=== PATIENT | male | born 1955 | race Caucasian/White ===

== ENCOUNTER 2016-11-23 21:45 | Inpatient (IN) | payer MEDICARE, OTHER ==
[~2016-11-23] VITALS: Ht 182.9 cm; Wt 174.5 kg
[2016-11-23] MEDS ORDERED: ACETAMINOPHEN 500 MG TABLET ONE (21:52)
[2016-11-23] MEDS ORDERED: ACETAMINOPHEN 500 MG TABLET PO ONE (22:00)
[2016-11-23] MEDS ORDERED: ALPR0.255 PO (22:08)
[2016-11-23] MEDS ORDERED: ARIP2 PO (22:08)
[2016-11-23] MEDS ORDERED: SITA25 PO (22:08)
[2016-11-23] MEDS ORDERED: HTN MED PO (22:08)
[2016-11-23] MEDS ORDERED: INSLAN SQ (22:08)
[2016-11-23] MEDS ORDERED: METF500T4 PO (22:08)
[2016-11-23 22:36] LABS: GLUCOSE,POINT OF CARE 369 MG/DL (70-110)
[2016-11-23 23:13] LABS: EOSINOPHILS % (AUTO) 0 % (1.0-6.0); HEMATOCRIT 37.1 % (41-53); HEMOGLOBIN 12.4 g/dL (13.5-17.5); LYMPHOCYTES # (AUTO) 0.3 K/uL (1.0-4.8); LYMPHOCYTES % (AUTO) 1.3 % (22.0-44.0); MEAN CORPUSCULAR HEMOGLOBIN 28.4 pg (26.0-34.0); MEAN CORPUSCULAR HGB CONC 33.3 G/dL (31.0-37.0); MEAN CORPUSCULAR VOLUME 85 fL (80-100); MONOCYTES # (AUTO) 0.2 K/uL (0.1-1.0); MONOCYTES % (AUTO) 1.2 % (2.0-9.0); NEUTROPHILS # (AUTO) 18.5 K/uL (1.8-7.7); PLATELET COUNT (AUTO) 170 K/uL (150-450); RED BLOOD CELL COUNT(AUTO) 4.35 MIL/uL (4.50-5.90); RED CELL DISTRIBUTION WIDTH 14.6 % (11.5-14.5)
[2016-11-23 23:23] LABS: NEUTROPHILS % (AUTO) 97.5 % (40.0-70.0)
[2016-11-23 23:25] LABS: CALCIUM, TOTAL 8.3 mg/dL (8.8-10.5); CREATININE 1.56 mg/dL (0.60-1.30); POTASSIUM 3.4 mmol/L (3.5-5.1)
[2016-11-23 23:31] LABS: ALBUMIN 3.4 g/dL (3.4-5.0); BILIRUBIN,TOTAL 0.6 mg/dL (0.1-1.0); TOTAL PROTEIN, SERUM 6.6 g/dL (6.4-8.2)
[2016-11-23] MEDS ORDERED: BISACODYL 10 MG RECTAL RECTAL SUPPOSITORY PR PRN (23:45)
[2016-11-23] MEDS ORDERED: ONDANSETRON HCL 4 MG/2 ML VIAL IVP PRN (23:45)
[2016-11-23] MEDS ORDERED: ZOLPIDEM TARTRATE 5 MG TABLET PO PRN (23:45)
[2016-11-23] MEDS ORDERED: DEXTROSE 50%-WATER 25 GM/50 ML SYRINGE IVP PRN (23:45)
[2016-11-24] MEDS: POTASSIUM CHL 20 MEQ/0.45% NS 1,000 ML IV SCH ×2 (00:12→16:32)
[2016-11-24] MEDS: HEPARIN SODIUM,PORCINE 5,000 UNITS/ML VIAL SQ SCH ×4 (00:12→23:23)
[2016-11-24] MEDS ORDERED: VANCOMYCIN HCL 1 GM/D5% WATER 200 ML IV ONE ×3 (00:30→18:00)
[2016-11-24] MEDS: PIPERACILLIN/TAZO 3.375 GM/D5W 50 ML IV SCH ×4 (00:46→21:27)
[2016-11-24 00:52] LABS: INFLUENZA TYPE B NEGATIVE FOR TYPE B (NEGATIVE)
[2016-11-24] MEDS ORDERED: ACETAMINOPHEN 650 MG/ISO-OSM 65 ML IV ONE (01:00)
[2016-11-24 02:11] LABS: GLUCOSE,POINT OF CARE 385 MG/DL (70-110)
[2016-11-24] MEDS ORDERED: INSULIN REGULAR, HUMAN 100 UNITS/ML IVP ONE (02:15)
[2016-11-24 02:44] LABS: LACTIC ACID 4.2 mmol/L (0.4-2.0)
[2016-11-24] MEDS ORDERED: IBUPROFEN 600 MG TABLET PO ONE (03:00)
[2016-11-24 03:45] LABS: GLUCOSE, URINE (UA) >=1000 mg/dL (NEGATIVE); KETONES,URINE TRACE mg/dL (NEGATIVE); LEUKOCYTE ESTERASE ,URINE SMALL (NEGATIVE); OCCULT BLOOD,URINE TRACE (NEGATIVE); PH,URINE 5.5 (5.0-8.0); PROTEIN,URINE TRACE (NEGATIVE)
[2016-11-24 04:07] LABS: ADD UA MICROSCOPIC YES; APPEARANCE,URINE SLIGHTLY CLOUDY (CLEAR)
[2016-11-24 04:08] LABS: SQUAMOUS EPITHELIAL CELL,UR Moderate /LPF (None Seen)
[2016-11-24 04:12] LABS: REFLEX LACTIC ACID? YES YES
[2016-11-24 05:25] LABS: HEMATOCRIT 34.3 % (41-53); HEMOGLOBIN 11.4 g/dL (13.5-17.5); MEAN CORPUSCULAR HEMOGLOBIN 28.2 pg (26.0-34.0); MEAN CORPUSCULAR HGB CONC 33.3 G/dL (31.0-37.0); MEAN CORPUSCULAR VOLUME 85 fL (80-100); PLATELET COUNT (AUTO) 158 K/uL (150-450); RED BLOOD CELL COUNT(AUTO) 4.06 MIL/uL (4.50-5.90); RED CELL DISTRIBUTION WIDTH 14.7 % (11.5-14.5); WHITE BLOOD COUNT (AUTO) 23.2 K/uL (4.5-11.0)
[2016-11-24 05:53] LABS: BILIRUBIN,TOTAL 0.8 mg/dL (0.1-1.0); CALCIUM, TOTAL 7.8 mg/dL (8.8-10.5); CREATININE 1.72 mg/dL (0.60-1.30); POTASSIUM 3.5 mmol/L (3.5-5.1); THYROID STIMULATING HORMONE 2.85 uIU/mL (0.36-3.74)
[2016-11-24 06:59] LABS: HEMOGLOBIN A1C 10.4 % (4.5-6.2)
[2016-11-24] MEDS ORDERED: SODIUM CHLORIDE 0.9% 1,000 ML IV ONE (07:00)
[2016-11-24 08:58] LABS: BAND NEUTROPHILS % (MANUAL) 27 % (1-5); LYMPHOCYTES % (MANUAL) 9 % (22-44); RBC MORPHOLOGY COMMENT ABNORMAL RBC MORPH; TOTAL CELLS COUNTED 100
[2016-11-24] MEDS ORDERED: ARIPiprazole 2 MG TABLET PO SCH (09:00)
[2016-11-24] MEDS: ALPRAZolam 0.25 MG TABLET PO SCH ×2 (09:47→20:26)
[2016-11-24] MEDS: PANTOPRAZOLE SODIUM 40 MG DR TABLET PO SCH (09:47)
[2016-11-24 11:36] LABS: GLUCOSE,POINT OF CARE 352 MG/DL (70-110)
[2016-11-24] MEDS: INSULIN DETEMIR 100 UNITS/ML SQ SCH (12:02)
[2016-11-24] MEDS: ACETAMINOPHEN 325 MG TABLET PO PRN ×2 (16:33→23:23)
[2016-11-24 18:41] VITALS: BP 144/88
[2016-11-24 19:16] VITALS: BP 129/60
[2016-11-24] MEDS: INSULIN ASPART 100 UNITS/ML SQ PRN (20:32)
[2016-11-24] MEDS ORDERED: INFLUENZA VIRUS VACCINE QVS 2016-17 (3YR+)/PF 60 MCG/0.5 ML SYRINGE IM ONE (22:00)
[2016-11-24] MEDS ORDERED: PNEUMOCOCCAL VACCINE POLYVALENT 0.5 ML VIAL [PPSV23] IM ONE (22:00)
[2016-11-24] MEDS: OxyCODONE HCL/ACETAMINOPHEN 5-325 MG TABLET PO PRN (22:01)
[2016-11-24 23:20] VITALS: BP 122/70
[2016-11-24 23:28] VITALS: BP 122/70
[2016-11-24] MEDS ORDERED: DILTIAZEM HCL 5 MG/ML 5 ML VIAL IVP ONE (23:45)
[2016-11-25] VITALS (8 sets, daily range): BP systolic 109–133; BP diastolic 56–83
[2016-11-25] MEDS ORDERED: DILTIAZEM HCL 5 MG/ML 5 ML VIAL IVP ONE (00:30)
[2016-11-25] MEDS: PIPERACILLIN/TAZO 3.375 GM/D5W 50 ML IV SCH ×4 (01:06→18:03)
[2016-11-25] MEDS: DILTIAZEM HCL 125 MG in DEXTROSE 5%-WATER 100 ML IV SCH ×2 (01:30→09:50)
[2016-11-25] MEDS: INSULIN ASPART 100 UNITS/ML SQ PRN ×4 (05:58→21:32)
[2016-11-25 07:03] LABS: EOSINOPHILS # (AUTO) 0.01 K/uL (0.00-0.70); EOSINOPHILS % (AUTO) 0.06 % (1.0-6.0); HEMATOCRIT 35.2 % (41-53); HEMOGLOBIN 11.7 g/dL (13.5-17.5); LYMPHOCYTES # (AUTO) 0.6 K/uL (1.0-4.8); LYMPHOCYTES % (AUTO) 4.9 % (22.0-44.0); MEAN CORPUSCULAR HEMOGLOBIN 28.2 pg (26.0-34.0); MEAN CORPUSCULAR HGB CONC 33.3 G/dL (31.0-37.0); MEAN CORPUSCULAR VOLUME 85 fL (80-100); MONOCYTES # (AUTO) 0.5 K/uL (0.1-1.0); MONOCYTES % (AUTO) 4.2 % (2.0-9.0); NEUTROPHILS # (AUTO) 11.7 K/uL (1.8-7.7); PLATELET COUNT (AUTO) 152 K/uL (150-450); RED BLOOD CELL COUNT(AUTO) 4.15 MIL/uL (4.50-5.90); RED CELL DISTRIBUTION WIDTH 15.1 % (11.5-14.5); WHITE BLOOD COUNT (AUTO) 12.9 K/uL (4.5-11.0)
[2016-11-25 07:16] LABS: NEUTROPHILS % (AUTO) 90.9 % (40.0-70.0)
[2016-11-25 07:49] LABS: ALBUMIN 2.9 g/dL (3.4-5.0); BILIRUBIN,TOTAL 0.8 mg/dL (0.1-1.0); CREATININE 1.55 mg/dL (0.60-1.30); POTASSIUM 4.1 mmol/L (3.5-5.1); TOTAL PROTEIN, SERUM 6.4 g/dL (6.4-8.2)
[2016-11-25 08:05] LABS: CALCIUM, TOTAL 8.1 mg/dL (8.8-10.5)
[2016-11-25 08:31] LABS: GLUCOSE COMMENT 1 Received Meds; GLUCOSE,POINT OF CARE 344 MG/DL (70-110)
[2016-11-25 08:36] LABS: GLUCOSE COMMENT 1 Received Meds; GLUCOSE,POINT OF CARE 324 MG/DL (70-110)
[2016-11-25] MEDS: VANCOMYCIN HCL 1 GM/D5% WATER 200 ML IV SCH ×2 (08:43→23:26)
[2016-11-25] MEDS: ALPRAZolam 0.25 MG TABLET PO SCH ×2 (08:43→19:58)
[2016-11-25] MEDS: HEPARIN SODIUM,PORCINE 5,000 UNITS/ML VIAL SQ SCH ×3 (08:43→23:26)
[2016-11-25] MEDS: PANTOPRAZOLE SODIUM 40 MG DR TABLET PO SCH (08:43)
[2016-11-25] MEDS: ACETAMINOPHEN 325 MG TABLET PO PRN (08:44)
[2016-11-25] MEDS: INSULIN DETEMIR 100 UNITS/ML SQ SCH ×2 (09:46→23:27)
[2016-11-25 10:54] LABS: BAND NEUTROPHILS % (MANUAL) 17 % (1-5); LYMPHOCYTES % (MANUAL) 8 % (22-44); RBC MORPHOLOGY COMMENT NORMAL RBC MORPH; TOTAL CELLS COUNTED 100
[2016-11-25] MEDS: CHOLECALCIFEROL (VIT D3) 1,000 UNITS TABLET PO SCH (15:12)
[2016-11-25] MEDS: POTASSIUM CHL 20 MEQ/0.45% NS 1,000 ML IV SCH ×2 (15:37→18:54)
[2016-11-25] MEDS: DILTIAZEM HCL 30 MG TABLET PO SCH ×2 (15:37→23:26)
[2016-11-25] MEDS: OxyCODONE HCL/ACETAMINOPHEN 5-325 MG TABLET PO PRN (19:58)
[2016-11-26 00:54] VITALS: BP 119/77
[2016-11-26] MEDS: PIPERACILLIN/TAZO 3.375 GM/D5W 50 ML IV SCH ×4 (03:14→19:53)
[2016-11-26] MEDS ORDERED: 0.9% SODIUM CHLORIDE 10 ML SYRINGE IVP PRN (04:15)
[2016-11-26 04:17] VITALS: BP 123/72
[2016-11-26] MEDS: INSULIN ASPART 100 UNITS/ML SQ PRN ×4 (05:48→21:01)
[2016-11-26 07:07] LABS: BASOPHILS % (AUTO) 0.3 % (0.0-2.0); EOSINOPHILS % (AUTO) 0.5 % (1.0-6.0); HEMATOCRIT 33.3 % (41-53); LYMPHOCYTES # (AUTO) 0.7 K/uL (1.0-4.8); LYMPHOCYTES % (AUTO) 7.2 % (22.0-44.0); MEAN CORPUSCULAR HEMOGLOBIN 28.1 pg (26.0-34.0); MEAN CORPUSCULAR HGB CONC 33.2 G/dL (31.0-37.0); MEAN CORPUSCULAR VOLUME 85 fL (80-100); MONOCYTES # (AUTO) 0.5 K/uL (0.1-1.0); MONOCYTES % (AUTO) 5.1 % (2.0-9.0); PLATELET COUNT (AUTO) 146 K/uL (150-450); RED BLOOD CELL COUNT(AUTO) 3.93 MIL/uL (4.50-5.90); RED CELL DISTRIBUTION WIDTH 15.4 % (11.5-14.5); WHITE BLOOD COUNT (AUTO) 9.2 K/uL (4.5-11.0)
[2016-11-26 07:13] VITALS: BP 131/68
[2016-11-26 07:14] LABS: NEUTROPHILS % (AUTO) 86.9 % (40.0-70.0)
[2016-11-26 07:37] LABS: ALANINE AMINOTRANSFERASE 33 U/L (12-78); ALBUMIN 2.7 g/dL (3.4-5.0); ANION GAP 10 mmol/L (8-16); ASPARTATE AMINOTRANSFERASE 40 U/L (15-37); BILIRUBIN,TOTAL 0.6 mg/dL (0.1-1.0); CALCIUM, TOTAL 8.4 mg/dL (8.8-10.5); CARBON DIOXIDE 22 mmol/L (22-29); CHLORIDE 95 mmol/L (98-107); CREATININE 1.13 mg/dL (0.60-1.30); GLOMERULAR FILTR. RATE CALC > 60 mL/min (>60); POTASSIUM 4.4 mmol/L (3.5-5.1); SODIUM SERUM 127 mmol/L (136-145); TOTAL PROTEIN, SERUM 6.6 g/dL (6.4-8.2); UREA NITROGEN, BLOOD 14 mg/dL (7-18)
[2016-11-26] MEDS: VANCOMYCIN HCL 1 GM/D5% WATER 200 ML IV SCH (08:49)
[2016-11-26] MEDS: POTASSIUM CHL 20 MEQ/0.45% NS 1,000 ML IV SCH ×2 (08:49→09:05)
[2016-11-26] MEDS: DILTIAZEM HCL 30 MG TABLET PO SCH ×2 (08:49→16:28)
[2016-11-26] MEDS: HEPARIN SODIUM,PORCINE 5,000 UNITS/ML VIAL SQ SCH ×2 (08:50→16:28)
[2016-11-26] MEDS: CHOLECALCIFEROL (VIT D3) 1,000 UNITS TABLET PO SCH (08:50)
[2016-11-26] MEDS: PANTOPRAZOLE SODIUM 40 MG DR TABLET PO SCH (08:50)
[2016-11-26] MEDS: ALPRAZolam 0.25 MG TABLET PO SCH ×2 (08:51→20:48)
[2016-11-26] MEDS: INSULIN DETEMIR 100 UNITS/ML SQ SCH ×2 (08:58→21:00)
[2016-11-26 09:13] LABS: RBC MORPHOLOGY COMMENT NORMAL RBC MORPH
[2016-11-26 10:50] VITALS: BP 138/73
[2016-11-26] MEDS: OxyCODONE HCL/ACETAMINOPHEN 5-325 MG TABLET PO PRN ×2 (11:05→17:53)
[2016-11-26 11:21] LABS: GLUCOSE,POINT OF CARE 291 MG/DL (70-110)
[2016-11-26 15:04] VITALS: BP 141/77
[2016-11-26] MEDS: VANCOMYCIN HCL 1.25 GM in DEXTROSE 5%-WATER 250 ML IV SCH ×2 (16:28→23:22)
[2016-11-26] MEDS ORDERED: SODIUM CHLORIDE 0.9% 100 ML ONE (17:12)
[2016-11-26 19:48] VITALS: BP 151/78
[2016-11-26 23:57] LABS: GLUCOSE,POINT OF CARE 288 MG/DL (70-110)
[2016-11-26 23:57] LABS: GLUCOSE COMMENT 1 Received Meds; GLUCOSE,POINT OF CARE 298 MG/DL (70-110)
[2016-11-27] VITALS (8 sets, daily range): BP systolic 108–144; BP diastolic 71–95
[2016-11-27] MEDS: HEPARIN SODIUM,PORCINE 5,000 UNITS/ML VIAL SQ SCH ×4 (00:46→23:28)
[2016-11-27] MEDS: DILTIAZEM HCL 30 MG TABLET PO SCH ×4 (00:47→23:28)
[2016-11-27] MEDS ORDERED: SODIUM CHLORIDE 0.9% 0 ML ONE ×2 (01:45→14:56)
[2016-11-27] MEDS: PIPERACILLIN/TAZO 3.375 GM/D5W 50 ML IV SCH ×4 (01:52→18:04)
[2016-11-27] MEDS: INSULIN ASPART 100 UNITS/ML SQ PRN ×4 (06:41→21:19)
[2016-11-27 06:56] LABS: GLUCOSE,POINT OF CARE 353 MG/DL (70-110)
[2016-11-27 06:56] LABS: GLUCOSE COMMENT 1 Received Meds; GLUCOSE,POINT OF CARE 266 MG/DL (70-110)
[2016-11-27 06:56] LABS: GLUCOSE,POINT OF CARE 304 MG/DL (70-110)
[2016-11-27 07:24] LABS: BASOPHILS % (AUTO) 0.2 % (0.0-2.0); EOSINOPHILS % (AUTO) 1.3 % (1.0-6.0); HEMATOCRIT 32.8 % (41-53); HEMOGLOBIN 10.7 g/dL (13.5-17.5); LYMPHOCYTES # (AUTO) 0.5 K/uL (1.0-4.8); LYMPHOCYTES % (AUTO) 6.3 % (22.0-44.0); MEAN CORPUSCULAR HEMOGLOBIN 27.6 pg (26.0-34.0); MEAN CORPUSCULAR HGB CONC 32.6 G/dL (31.0-37.0); MEAN CORPUSCULAR VOLUME 85 fL (80-100); MONOCYTES # (AUTO) 0.5 K/uL (0.1-1.0); MONOCYTES % (AUTO) 6.2 % (2.0-9.0); NEUTROPHILS # (AUTO) 6.6 K/uL (1.8-7.7); PLATELET COUNT (AUTO) 130 K/uL (150-450); RED BLOOD CELL COUNT(AUTO) 3.87 MIL/uL (4.50-5.90); RED CELL DISTRIBUTION WIDTH 15.2 % (11.5-14.5); WHITE BLOOD COUNT (AUTO) 7.7 K/uL (4.5-11.0)
[2016-11-27 07:25] LABS: RBC MORPHOLOGY COMMENT NORMAL RBC MORPH
[2016-11-27 07:36] LABS: ALANINE AMINOTRANSFERASE 34 U/L (12-78); ALBUMIN 2.5 g/dL (3.4-5.0); ANION GAP 10 mmol/L (8-16); ASPARTATE AMINOTRANSFERASE 57 U/L (15-37); BILIRUBIN,TOTAL 0.5 mg/dL (0.1-1.0); CALCIUM, TOTAL 8.4 mg/dL (8.8-10.5); CARBON DIOXIDE 25 mmol/L (22-29); CHLORIDE 94 mmol/L (98-107); CREATININE 1.03 mg/dL (0.60-1.30); GLOMERULAR FILTR. RATE CALC > 60 mL/min (>60); POTASSIUM 4.1 mmol/L (3.5-5.1); SODIUM SERUM 129 mmol/L (136-145); TOTAL PROTEIN, SERUM 6.5 g/dL (6.4-8.2); UREA NITROGEN, BLOOD 11 mg/dL (7-18)
[2016-11-27] MEDS ORDERED: SODIUM CHLORIDE 0.9% 250 ML IV ONE (08:23)
[2016-11-27] MEDS: ALPRAZolam 0.25 MG TABLET PO SCH (08:29)
[2016-11-27] MEDS: CHOLECALCIFEROL (VIT D3) 1,000 UNITS TABLET PO SCH (08:29)
[2016-11-27] MEDS: PANTOPRAZOLE SODIUM 40 MG DR TABLET PO SCH (08:29)
[2016-11-27] MEDS: CITALOPRAM HYDROBROMIDE 20 MG TABLET PO SCH (08:29)
[2016-11-27] MEDS: INSULIN DETEMIR 100 UNITS/ML SQ SCH ×2 (08:31→21:19)
[2016-11-27] MEDS: VANCOMYCIN HCL 1.25 GM in DEXTROSE 5%-WATER 250 ML IV SCH ×3 (08:32→23:27)
[2016-11-27] MEDS ORDERED: ZOLPIDEM TARTRATE 10 MG TABLET PO PRN (09:00)
[2016-11-27] MEDS: DOCUSATE SODIUM 100 MG CAPSULE PO SCH ×2 (09:20→20:19)
[2016-11-27] MEDS: MAGNESIUM HYDROXIDE SUSPENSION 30 ML UDCUP PO PRN (09:20)
[2016-11-27 10:16] LABS: GLUCOSE,POINT OF CARE 245 MG/DL (70-110)
[2016-11-27] MEDS: OxyCODONE HCL/ACETAMINOPHEN 5-325 MG TABLET PO PRN ×2 (12:09→18:04)
[2016-11-27 13:56] LABS: GLUCOSE COMMENT 1 Received Meds; GLUCOSE,POINT OF CARE 280 MG/DL (70-110)
[2016-11-27] MEDS: MetFORMIN HCL 500 MG TABLET PO SCH (18:04)
[2016-11-27 18:30] LABS: GLUCOSE COMMENT 1 Received Meds; GLUCOSE,POINT OF CARE 261 MG/DL (70-110)
[2016-11-27] MEDS: ALPRAZolam 0.5 MG TABLET PO SCH (21:20)
[2016-11-27] MEDS ORDERED: SODIUM CHLORIDE 0.9% 500 ML IV ONE (21:35)
[2016-11-27 23:56] LABS: GLUCOSE COMMENT 1 Received Meds; GLUCOSE,POINT OF CARE 281 MG/DL (70-110)
[2016-11-28] MEDS: PIPERACILLIN/TAZO 3.375 GM/D5W 50 ML IV SCH ×2 (01:34→06:34)
[2016-11-28 04:41] VITALS: BP 137/80
[2016-11-28 06:16] LABS: GLUCOSE COMMENT 1 Received Meds; GLUCOSE,POINT OF CARE 232 MG/DL (70-110)
[2016-11-28 07:10] VITALS: BP 147/64
[2016-11-28 07:43] LABS: BASOPHILS % (AUTO) 0.3 % (0.0-2.0); EOSINOPHILS % (AUTO) 2.5 % (1.0-6.0); HEMATOCRIT 31.6 % (41-53); HEMOGLOBIN 10.2 g/dL (13.5-17.5); LYMPHOCYTES # (AUTO) 0.6 K/uL (1.0-4.8); LYMPHOCYTES % (AUTO) 10.2 % (22.0-44.0); MEAN CORPUSCULAR HEMOGLOBIN 27.6 pg (26.0-34.0); MEAN CORPUSCULAR HGB CONC 32.4 G/dL (31.0-37.0); MEAN CORPUSCULAR VOLUME 85 fL (80-100); MONOCYTES # (AUTO) 0.5 K/uL (0.1-1.0); MONOCYTES % (AUTO) 8.9 % (2.0-9.0); NEUTROPHILS # (AUTO) 4.7 K/uL (1.8-7.7); NEUTROPHILS % (AUTO) 78.1 % (40.0-70.0); PLATELET COUNT (AUTO) 165 K/uL (150-450); RED BLOOD CELL COUNT(AUTO) 3.72 MIL/uL (4.50-5.90); RED CELL DISTRIBUTION WIDTH 15.3 % (11.5-14.5); WHITE BLOOD COUNT (AUTO) 6.1 K/uL (4.5-11.0)
[2016-11-28 07:52] LABS: ALANINE AMINOTRANSFERASE 31 U/L (12-78); ALBUMIN 2.5 g/dL (3.4-5.0); ANION GAP 5 mmol/L (8-16); ASPARTATE AMINOTRANSFERASE 45 U/L (15-37); BILIRUBIN,TOTAL 0.4 mg/dL (0.1-1.0); CALCIUM, TOTAL 8.4 mg/dL (8.8-10.5); CARBON DIOXIDE 29 mmol/L (22-29); CHLORIDE 96 mmol/L (98-107); CREATININE 0.92 mg/dL (0.60-1.30); GLOMERULAR FILTR. RATE CALC > 60 mL/min (>60); POTASSIUM 4.2 mmol/L (3.5-5.1); SODIUM SERUM 130 mmol/L (136-145); TOTAL PROTEIN, SERUM 6.5 g/dL (6.4-8.2); UREA NITROGEN, BLOOD 12 mg/dL (7-18)
[2016-11-28] MEDS: PANTOPRAZOLE SODIUM 40 MG DR TABLET PO SCH (08:20)
[2016-11-28] MEDS: MetFORMIN HCL 500 MG TABLET PO SCH ×2 (08:20→17:20)
[2016-11-28] MEDS: VANCOMYCIN HCL 1.25 GM in DEXTROSE 5%-WATER 250 ML IV SCH (08:20)
[2016-11-28] MEDS: DILTIAZEM HCL 30 MG TABLET PO SCH ×2 (08:20→17:21)
[2016-11-28] MEDS: CITALOPRAM HYDROBROMIDE 20 MG TABLET PO SCH (08:20)
[2016-11-28] MEDS: ALPRAZolam 0.5 MG TABLET PO SCH ×2 (08:21→20:46)
[2016-11-28] MEDS: CHOLECALCIFEROL (VIT D3) 1,000 UNITS TABLET PO SCH (08:21)
[2016-11-28] MEDS: DOCUSATE SODIUM 100 MG CAPSULE PO SCH ×2 (08:21→20:46)
[2016-11-28] MEDS: HEPARIN SODIUM,PORCINE 5,000 UNITS/ML VIAL SQ SCH ×2 (08:21→17:21)
[2016-11-28] MEDS: SitaGLIPtin PHOSPHATE 25 MG TABLET PO SCH (08:21)
[2016-11-28] MEDS: INSULIN DETEMIR 100 UNITS/ML SQ SCH ×2 (08:23→20:45)
[2016-11-28] MEDS ORDERED: INSULIN GLARGINE,HUM.REC.ANLOG 100 UNITS/ML SQ SCH (09:00)
[2016-11-28] MEDS: MAGNESIUM HYDROXIDE SUSPENSION 30 ML UDCUP PO PRN (10:12)
[2016-11-28] MEDS: INSULIN ASPART 100 UNITS/ML SQ PRN ×3 (11:41→20:45)
[2016-11-28 12:03] VITALS: BP 115/69
[2016-11-28 12:06] LABS: GLUCOSE COMMENT 1 Received Meds; GLUCOSE,POINT OF CARE 227 MG/DL (70-110)
[2016-11-28 14:48] VITALS: BP 101/65
[2016-11-28 17:36] LABS: GLUCOSE,POINT OF CARE 168 MG/DL (70-110)
[2016-11-28 19:56] VITALS: BP 132/65
[2016-11-28 20:42] LABS: GLUCOSE COMMENT 1 Received Meds; GLUCOSE,POINT OF CARE 289 MG/DL (70-110)
[2016-11-28 20:42] LABS: GLUCOSE COMMENT 1 Received Meds; GLUCOSE,POINT OF CARE 282 MG/DL (70-110)
[2016-11-28 20:42] LABS: GLUCOSE,POINT OF CARE 336 MG/DL (70-110)
[2016-11-28 20:42] LABS: GLUCOSE COMMENT 1 Received Meds; GLUCOSE,POINT OF CARE 293 MG/DL (70-110)
[2016-11-28] MEDS: SULFAMETHOX/TRIMETH DS 800-160 MG/TABLET PO SCH (20:46)
[2016-11-28 22:11] LABS: GLUCOSE COMMENT 1 Received Meds; GLUCOSE,POINT OF CARE 195 MG/DL (70-110)
[2016-11-28 23:19] VITALS: BP 140/75
[2016-11-29] MEDS: DILTIAZEM HCL 30 MG TABLET PO SCH ×4 (00:14→23:31)
[2016-11-29] MEDS: HEPARIN SODIUM,PORCINE 5,000 UNITS/ML VIAL SQ SCH ×4 (00:14→23:25)
[2016-11-29 05:00] VITALS: BP 129/69
[2016-11-29] MEDS: INSULIN ASPART 100 UNITS/ML SQ PRN ×4 (05:53→21:18)
[2016-11-29 07:13] VITALS: BP 148/79
[2016-11-29 07:32] LABS: ANION GAP 4 mmol/L (8-16); CALCIUM, TOTAL 8.6 mg/dL (8.8-10.5); CARBON DIOXIDE 31 mmol/L (22-29); CHLORIDE 97 mmol/L (98-107); CREATININE 0.97 mg/dL (0.60-1.30); GLOMERULAR FILTR. RATE CALC > 60 mL/min (>60); SODIUM SERUM 132 mmol/L (136-145); UREA NITROGEN, BLOOD 12 mg/dL (7-18)
[2016-11-29 08:16] LABS: GLUCOSE COMMENT 1 Received Meds; GLUCOSE,POINT OF CARE 198 MG/DL (70-110)
[2016-11-29] MEDS: DOCUSATE SODIUM 100 MG CAPSULE PO SCH ×2 (09:00→20:59)
[2016-11-29] MEDS: SULFAMETHOX/TRIMETH DS 800-160 MG/TABLET PO SCH ×2 (09:09→20:59)
[2016-11-29] MEDS: MetFORMIN HCL 500 MG TABLET PO SCH ×2 (09:09→16:35)
[2016-11-29] MEDS: SitaGLIPtin PHOSPHATE 25 MG TABLET PO SCH (09:10)
[2016-11-29] MEDS: PANTOPRAZOLE SODIUM 40 MG DR TABLET PO SCH (09:10)
[2016-11-29] MEDS: CITALOPRAM HYDROBROMIDE 20 MG TABLET PO SCH (09:10)
[2016-11-29] MEDS: CHOLECALCIFEROL (VIT D3) 1,000 UNITS TABLET PO SCH (09:10)
[2016-11-29] MEDS: ALPRAZolam 0.5 MG TABLET PO SCH ×2 (09:11→20:59)
[2016-11-29] MEDS: INSULIN DETEMIR 100 UNITS/ML SQ SCH ×2 (09:24→21:17)
[2016-11-29] MEDS: OxyCODONE HCL/ACETAMINOPHEN 5-325 MG TABLET PO PRN (09:34)
[2016-11-29 11:11] VITALS: BP 117/60
[2016-11-29 11:51] LABS: GLUCOSE,POINT OF CARE 251 MG/DL (70-110)
[2016-11-29 15:35] VITALS: BP 128/75
[2016-11-29 17:36] LABS: GLUCOSE,POINT OF CARE 212 MG/DL (70-110)
[2016-11-29 19:53] VITALS: BP 112/73
[2016-11-29 21:36] LABS: GLUCOSE,POINT OF CARE 193 MG/DL (70-110)
[2016-11-29 23:40] VITALS: BP 132/66
[2016-11-30 04:17] VITALS: BP 129/79
[2016-11-30] MEDS: INSULIN ASPART 100 UNITS/ML SQ PRN ×4 (06:27→20:00)
[2016-11-30 06:31] LABS: GLUCOSE,POINT OF CARE 172 MG/DL (70-110)
[2016-11-30 06:58] LABS: BASOPHILS % (AUTO) 0.1 % (0.0-2.0); EOSINOPHILS % (AUTO) 3.1 % (1.0-6.0); HEMATOCRIT 32.8 % (41-53); HEMOGLOBIN 10.7 g/dL (13.5-17.5); LYMPHOCYTES # (AUTO) 0.8 K/uL (1.0-4.8); LYMPHOCYTES % (AUTO) 11.1 % (22.0-44.0); MEAN CORPUSCULAR HEMOGLOBIN 27.7 pg (26.0-34.0); MEAN CORPUSCULAR HGB CONC 32.5 G/dL (31.0-37.0); MEAN CORPUSCULAR VOLUME 85 fL (80-100); MONOCYTES # (AUTO) 0.4 K/uL (0.1-1.0); MONOCYTES % (AUTO) 6.5 % (2.0-9.0); NEUTROPHILS # (AUTO) 5.4 K/uL (1.8-7.7); NEUTROPHILS % (AUTO) 79.2 % (40.0-70.0); PLATELET COUNT (AUTO) 252 K/uL (150-450); RED BLOOD CELL COUNT(AUTO) 3.84 MIL/uL (4.50-5.90); RED CELL DISTRIBUTION WIDTH 14.7 % (11.5-14.5); WHITE BLOOD COUNT (AUTO) 6.9 K/uL (4.5-11.0)
[2016-11-30 07:15] VITALS: BP 152/99
[2016-11-30 07:20] LABS: HEMOGLOBIN A1C 10.3 % (4.5-6.2)
[2016-11-30 07:46] LABS: ALANINE AMINOTRANSFERASE 31 U/L (12-78); ALBUMIN 2.6 g/dL (3.4-5.0); ANION GAP 7 mmol/L (8-16); ASPARTATE AMINOTRANSFERASE 25 U/L (15-37); BILIRUBIN,TOTAL 0.2 mg/dL (0.1-1.0); CALCIUM, TOTAL 8.9 mg/dL (8.8-10.5); CARBON DIOXIDE 31 mmol/L (22-29); CHLORIDE 99 mmol/L (98-107); CREATININE 0.96 mg/dL (0.60-1.30); GLOMERULAR FILTR. RATE CALC > 60 mL/min (>60); POTASSIUM 4.7 mmol/L (3.5-5.1); SODIUM SERUM 137 mmol/L (136-145); TOTAL PROTEIN, SERUM 6.8 g/dL (6.4-8.2); UREA NITROGEN, BLOOD 12 mg/dL (7-18)
[2016-11-30] MEDS: SitaGLIPtin PHOSPHATE 25 MG TABLET PO SCH (08:17)
[2016-11-30] MEDS: CHOLECALCIFEROL (VIT D3) 1,000 UNITS TABLET PO SCH (08:17)
[2016-11-30] MEDS: DILTIAZEM HCL 30 MG TABLET PO SCH ×3 (08:17→22:54)
[2016-11-30] MEDS: MetFORMIN HCL 500 MG TABLET PO SCH ×2 (08:18→17:50)
[2016-11-30] MEDS: HEPARIN SODIUM,PORCINE 5,000 UNITS/ML VIAL SQ SCH ×3 (08:18→22:52)
[2016-11-30] MEDS: SULFAMETHOX/TRIMETH DS 800-160 MG/TABLET PO SCH ×2 (08:18→20:05)
[2016-11-30] MEDS: PANTOPRAZOLE SODIUM 40 MG DR TABLET PO SCH (08:18)
[2016-11-30] MEDS: CITALOPRAM HYDROBROMIDE 20 MG TABLET PO SCH (08:19)
[2016-11-30] MEDS: DOCUSATE SODIUM 100 MG CAPSULE PO SCH ×2 (08:19→20:09)
[2016-11-30] MEDS: INSULIN DETEMIR 100 UNITS/ML SQ SCH ×2 (08:22→20:04)
[2016-11-30] MEDS: ALPRAZolam 0.5 MG TABLET PO SCH ×2 (08:22→20:05)
[2016-11-30 11:14] VITALS: BP 150/77
[2016-11-30 11:51] LABS: GLUCOSE COMMENT 1 Received Meds; GLUCOSE,POINT OF CARE 208 MG/DL (70-110)
[2016-11-30 13:30] VITALS: BP 130/72
[2016-11-30 17:41] LABS: GLUCOSE,POINT OF CARE 127 MG/DL (70-110)
[2016-11-30 20:08] VITALS: BP 116/58
[2016-12-01 00:06] VITALS: BP 147/81
[2016-12-01 02:01] LABS: GLUCOSE COMMENT 1 Received Meds; GLUCOSE,POINT OF CARE 162 MG/DL (70-110)
[2016-12-01 03:45] VITALS: BP 132/89
[2016-12-01] MEDS: INSULIN ASPART 100 UNITS/ML SQ PRN ×2 (05:32→12:01)
[2016-12-01 06:16] LABS: GLUCOSE COMMENT 1 Received Meds; GLUCOSE,POINT OF CARE 166 MG/DL (70-110)
[2016-12-01 07:14] LABS: BASOPHILS # (AUTO) 0.01 K/uL (0.00-0.20); BASOPHILS % (AUTO) 0.1 % (0.0-2.0); EOSINOPHILS # (AUTO) 0.18 K/uL (0.00-0.70); EOSINOPHILS % (AUTO) 2.85 % (1.0-6.0); HEMATOCRIT 33.3 % (41-53); HEMOGLOBIN 10.8 g/dL (13.5-17.5); LYMPHOCYTES # (AUTO) 0.7 K/uL (1.0-4.8); LYMPHOCYTES % (AUTO) 10.8 % (22.0-44.0); MEAN CORPUSCULAR HEMOGLOBIN 27.7 pg (26.0-34.0); MEAN CORPUSCULAR HGB CONC 32.6 G/dL (31.0-37.0); MEAN CORPUSCULAR VOLUME 85 fL (80-100); MONOCYTES # (AUTO) 0.4 K/uL (0.1-1.0); MONOCYTES % (AUTO) 5.7 % (2.0-9.0); NEUTROPHILS % (AUTO) 80.6 % (40.0-70.0); PLATELET COUNT (AUTO) 325 K/uL (150-450); RED BLOOD CELL COUNT(AUTO) 3.91 MIL/uL (4.50-5.90); RED CELL DISTRIBUTION WIDTH 15.5 % (11.5-14.5); WHITE BLOOD COUNT (AUTO) 6.3 K/uL (4.5-11.0)
[2016-12-01 07:26] VITALS: BP 130/84
[2016-12-01 07:33] LABS: ALANINE AMINOTRANSFERASE 29 U/L (12-78); ALBUMIN 2.6 g/dL (3.4-5.0); ANION GAP 6 mmol/L (8-16); ASPARTATE AMINOTRANSFERASE 22 U/L (15-37); BILIRUBIN,TOTAL 0.2 mg/dL (0.1-1.0); CALCIUM, TOTAL 8.9 mg/dL (8.8-10.5); CARBON DIOXIDE 31 mmol/L (22-29); CHLORIDE 100 mmol/L (98-107); CREATININE 0.98 mg/dL (0.60-1.30); GLOMERULAR FILTR. RATE CALC > 60 mL/min (>60); POTASSIUM 4.5 mmol/L (3.5-5.1); SODIUM SERUM 137 mmol/L (136-145); TOTAL PROTEIN, SERUM 6.8 g/dL (6.4-8.2); UREA NITROGEN, BLOOD 13 mg/dL (7-18)
[2016-12-01] MEDS: SULFAMETHOX/TRIMETH DS 800-160 MG/TABLET PO SCH (09:02)
[2016-12-01] MEDS: CHOLECALCIFEROL (VIT D3) 1,000 UNITS TABLET PO SCH (09:02)
[2016-12-01] MEDS: PANTOPRAZOLE SODIUM 40 MG DR TABLET PO SCH (09:02)
[2016-12-01] MEDS: CITALOPRAM HYDROBROMIDE 20 MG TABLET PO SCH (09:02)
[2016-12-01] MEDS: ALPRAZolam 0.5 MG TABLET PO SCH (09:02)
[2016-12-01] MEDS: DILTIAZEM HCL 30 MG TABLET PO SCH (09:03)
[2016-12-01] MEDS: DOCUSATE SODIUM 100 MG CAPSULE PO SCH (09:03)
[2016-12-01] MEDS: SitaGLIPtin PHOSPHATE 25 MG TABLET PO SCH (09:03)
[2016-12-01] MEDS: MetFORMIN HCL 500 MG TABLET PO SCH (09:03)
[2016-12-01] MEDS: HEPARIN SODIUM,PORCINE 5,000 UNITS/ML VIAL SQ SCH (09:03)
[2016-12-01] MEDS: INSULIN DETEMIR 100 UNITS/ML SQ SCH (09:04)
[2016-12-01 11:11] VITALS: BP 142/79
[2016-12-01 17:16] LABS: GLUCOSE,POINT OF CARE 197 MG/DL (70-110)
== END 2016-12-01 13:34 | DRG 871 ==
LOC: EMS 21:51 → 5N 11-24 17:43 → 6N 11-27 17:00
PROVIDERS: ADMIT Hospitalist; ATTEND Hospitalist
PROC: 3E0234Z Introduction of Serum, Toxoid and Vaccine into Muscle, Percutaneous Approach (ICD-10-PCS; principal; 2016-11-24)
DX: A41.9 Sepsis, unspecified organism (principal); G93.41 Metabolic encephalopathy; E44.0 Moderate protein-calorie malnutrition; E87.1 Hypo-osmolality and hyponatremia; L03.116 Cellulitis of left lower limb; L03.115 Cellulitis of right lower limb; Z68.43 Body mass index [BMI] 50.0-59.9, adult; I47.1 Supraventricular tachycardia; N39.0 Urinary tract infection, site not specified; D64.9 Anemia, unspecified; F41.9 Anxiety disorder, unspecified; E87.6 Hypokalemia; G25.0 Essential tremor; E66.01 Morbid (severe) obesity due to excess calories; E11.65 Type 2 diabetes mellitus with hyperglycemia; E55.9 Vitamin D deficiency, unspecified; F20.9 Schizophrenia, unspecified; I10 Essential (primary) hypertension; G47.33 Obstructive sleep apnea (adult) (pediatric); Z79.4 Long term (current) use of insulin; Z79.899 Other long term (current) drug therapy; Z90.49 Acquired absence of other specified parts of digestive tract; Z23 Encounter for immunization
CPT/HCPCS: 73700; 82306; 82962; 83036; 83605; 84443; 85007; 87040; 87086; 87804; 90471; 93005; 93306; 93970; 94660; 96361; 96365; 96366; 96367; 96368; 96375; 97116; 97162; 97530; 99291; J0131; J1644; J1815; J2543; J3370; J3480; J3490; J7040; J7050; J7060

== ENCOUNTER 2017-01-19 15:59 | Emergency (ER) | payer MEDICARE, OTHER ==
[~2017-01-19] VITALS: Ht 182.9 cm; Wt 159.1 kg
[~2017-01-19 15:59] MED LIST: ALPR0.255 PO; ARIP2 PO; HTN MED PO; INSLAN SQ; METF500T4 PO; SITA25 PO
[2017-01-19 16:26] LABS: GLUCOSE,POINT OF CARE 315 MG/DL (70-110)
[2017-01-19 16:46] LABS: BASOPHILS % (AUTO) 0.7 % (0.0-2.0); HEMATOCRIT 39.3 % (41-53); LYMPHOCYTES # (AUTO) 1.5 K/uL (1.0-4.8); LYMPHOCYTES % (AUTO) 21.1 % (22.0-44.0); MEAN CORPUSCULAR HEMOGLOBIN 28.6 pg (26.0-34.0); MEAN CORPUSCULAR HGB CONC 33.1 G/dL (31.0-37.0); MEAN CORPUSCULAR VOLUME 86 fL (80-100); MONOCYTES # (AUTO) 0.4 K/uL (0.1-1.0); MONOCYTES % (AUTO) 5.4 % (2.0-9.0); NEUTROPHILS # (AUTO) 4.9 K/uL (1.8-7.7); NEUTROPHILS % (AUTO) 69.8 % (40.0-70.0); PLATELET COUNT (AUTO) 203 K/uL (150-450); RED BLOOD CELL COUNT(AUTO) 4.55 MIL/uL (4.50-5.90); RED CELL DISTRIBUTION WIDTH 15.7 % (11.5-14.5)
[2017-01-19 16:58] LABS: ANION GAP 10 mmol/L (8-16); CALCIUM, TOTAL 8.4 mg/dL (8.8-10.5); CARBON DIOXIDE 26 mmol/L (22-29); CHLORIDE 101 mmol/L (98-107); CREATININE 1.19 mg/dL (0.60-1.30); GLOMERULAR FILTR. RATE CALC > 60 mL/min (>60); SODIUM SERUM 137 mmol/L (136-145); UREA NITROGEN, BLOOD 12 mg/dL (7-18)
[2017-01-19 17:04] LABS: ALANINE AMINOTRANSFERASE 29 U/L (12-78); ALBUMIN 3.7 g/dL (3.4-5.0); ASPARTATE AMINOTRANSFERASE 11 U/L (15-37); BILIRUBIN,TOTAL 0.3 mg/dL (0.1-1.0); TOTAL PROTEIN, SERUM 7.2 g/dL (6.4-8.2)
[2017-01-19 20:24] VITALS: BP 158/98
== END 2017-01-19 20:43 | disposition home or self-care (01) ==
LOC: EMS 16:00
DX: F20.9 Schizophrenia, unspecified (principal); E11.9 Type 2 diabetes mellitus without complications; I10 Essential (primary) hypertension
CPT/HCPCS: 36415; 80053; 82962; 85025; 99284; G0480

== ENCOUNTER 2017-10-19 07:57 | Inpatient (IN) | payer MEDICARE ==
[~2017-10-19] VITALS: Ht 182.9 cm; Wt 176.0 kg
[~2017-10-19 07:57] MED LIST changes: -ARIP2 PO; -INSLAN SQ; -SITA25 PO
[2017-10-19] MEDS ORDERED: PANT40TA25 PO (08:14)
[2017-10-19] MEDS ORDERED: GABA-531 PO (08:14)
[2017-10-19] MEDS ORDERED: TOPI25 PO (08:14)
[2017-10-19] MEDS ORDERED: LISI-662 PO (08:14)
[2017-10-19] MEDS ORDERED: INSLAN SQ (08:14)
[2017-10-19] MEDS ORDERED: KDUR20 PO (08:14)
[2017-10-19] MEDS ORDERED: LEVO75 PO (08:14)
[2017-10-19] MEDS ORDERED: FURO40 PO (08:14)
[2017-10-19] MEDS ORDERED: DILT60 PO (08:14)
[2017-10-19] MEDS ORDERED: OLAN10TA3 PO (08:14)
[2017-10-19] MEDS ORDERED: DIVA500T52 PO (08:14)
[2017-10-19 08:27] LABS: GLUCOSE,POINT OF CARE 309 MG/DL (70-110)
[2017-10-19 08:49] LABS: ABG A-A DIFF O2 16.4 mmHg (10-20.0); ABG BASE EXCESS 1.5 mmol/L (-2.0-3.0); ABG CARBOXYHEMOGLOBIN 2.2 % (0.0-1.5); ABG HCO3 24.6 mmol/L (22.0-26.0); ABG METHEMOGLOBIN 0.5 % (0.0-1.5); ABG OXYGEN CONTENT 13.3 mL/dL (15.0-23.0); ABG OXYGEN SATURATION 79.5 % (95.0-98.0); ABG OXYHEMOGLOBIN 77.4 % (94.0-100.0); ABG PCO2 63 mmHg (35-45); ABG PH 7.273 (7.35-7.450); ABG TOTAL HEMOGLOBIN 12.2 G/dL (12.0-18.0); O2 DEVICE,BLOOD GAS ROOM AIR (ROOM AIR); PO2, ARTERIAL BG 56.1 mmHg (79.0-87.0); SITE, BLOOD GAS RT RADIAL; SOURCE, BLOOD GAS ARTERIAL; TEMPERATURE, FAHRENHEIT, BG 103.3 FAHREN (96.0-98.6)
[2017-10-19 09:05] LABS: INFLUENZA TYPE A NEGATIVE FOR TYPE A (NEGATIVE); INFLUENZA TYPE B NEGATIVE FOR TYPE B (NEGATIVE)
[2017-10-19] MEDS ORDERED: IPRATROPIUM BROMIDE 0.5 MG/2.5 ML NEB SOLUTION NEB ONE ×4 (09:34→11:30)
[2017-10-19] MEDS ORDERED: ALBUTEROL SULFATE 5 MG/ML 20 ML NEB SOLN [BULK] NEB ONE ×3 (09:34→11:30)
[2017-10-19] MEDS ORDERED: 0.9% SODIUM CHLORIDE 15 ML NEB SOLUTION NEB ONE ×2 (09:34→11:24)
[2017-10-19 09:37] LABS: BASOPHILS # (AUTO) 0.01 K/uL (0.00-0.20); BASOPHILS % (AUTO) 0.2 % (0.0-2.0); EOSINOPHILS # (AUTO) 0.05 K/uL (0.00-0.70); EOSINOPHILS % (AUTO) 1.31 % (1.0-6.0); HEMATOCRIT 33.7 % (41-53); HEMOGLOBIN 11.2 g/dL (13.5-17.5); LYMPHOCYTES # (AUTO) 0.7 K/uL (1.0-4.8); LYMPHOCYTES % (AUTO) 17.6 % (22.0-44.0); MEAN CORPUSCULAR HEMOGLOBIN 29.3 pg (26.0-34.0); MEAN CORPUSCULAR HGB CONC 33.3 G/dL (31.0-37.0); MEAN CORPUSCULAR VOLUME 88 fL (80-100); MONOCYTES # (AUTO) 0.5 K/uL (0.1-1.0); MONOCYTES % (AUTO) 13.2 % (2.0-9.0); NEUTROPHILS # (AUTO) 2.7 K/uL (1.8-7.7); NEUTROPHILS % (AUTO) 67.7 % (40.0-70.0); PLATELET COUNT (AUTO) 144 K/uL (150-450); RED BLOOD CELL COUNT(AUTO) 3.83 MIL/uL (4.50-5.90); RED CELL DISTRIBUTION WIDTH 15.1 % (11.5-14.5)
[2017-10-19] MEDS ORDERED: MethylPREDNISolone SOD SUCC 125 MG/2 ML VIAL IVP ONE (09:45)
[2017-10-19] MEDS ORDERED: CEFEPIME HCL 1 GM/VIAL IM ONE (09:45)
[2017-10-19] MEDS ORDERED: CEFEPIME HCL 1 GM in DEXTROSE 5%-WATER 50 ML IV ONE (09:45)
[2017-10-19] MEDS ORDERED: VANCOMYCIN HCL 1.5 GM in DEXTROSE 5%-WATER 250 ML IV ONE (09:45)
[2017-10-19] MEDS ORDERED: SODIUM CHLORIDE 0.9% 1,000 ML IV ONE ×2 (09:45)
[2017-10-19] MEDS ORDERED: ALBUTEROL SULFATE 2.5 MG/0.5 ML NEB SOLUTION NEB ONE (09:45)
[2017-10-19 09:46] LABS: PROTHROMBIN TIME 10.5 SEC (9.4-11.6)
[2017-10-19 09:52] LABS: ANION GAP 5 mmol/L (8-16); CALCIUM, TOTAL 8.3 mg/dL (8.8-10.5); CARBON DIOXIDE 30 mmol/L (22-29); CHLORIDE 100 mmol/L (98-107); CREATININE 1.34 mg/dL (0.60-1.30); GLOMERULAR FILTR. RATE CALC 54 mL/min (>60); GLUCOSE,RANDOM 321 mg/dL (70-110); POTASSIUM 4.7 mmol/L (3.5-5.1); SODIUM SERUM 135 mmol/L (136-145); UREA NITROGEN, BLOOD 24 mg/dL (7-18)
[2017-10-19 10:00] LABS: B-TYPE NATRIURETIC PEPTIDE 16 pg/mL (0-100); LACTIC ACID 1.5 mmol/L (0.4-2.0)
[2017-10-19 10:17] LABS: ALANINE AMINOTRANSFERASE 36 U/L (12-78); ALBUMIN 3.1 g/dL (3.4-5.0); ALKALINE PHOSPHATASE 64 U/L (46-116); ASPARTATE AMINOTRANSFERASE 24 U/L (15-37); BILIRUBIN,TOTAL 0.3 mg/dL (0.1-1.0); CREATINE KINASE MB 2.4 ng/mL (0-5); CREATINE KINASE, TOTAL 216 U/L (39-308); TOTAL PROTEIN, SERUM 6.8 g/dL (6.4-8.2)
[2017-10-19] MEDS ORDERED: 0.9% SODIUM CHLORIDE 10 ML SYRINGE IVP PRN (12:30)
[2017-10-19] MEDS ORDERED: ALBUTEROL SULFATE 2.5 MG/0.5 ML NEB SOLUTION NEB PRN ×2 (12:30→16:15)
[2017-10-19] MEDS ORDERED: IPRATROPIUM BROMIDE 0.5 MG/2.5 ML NEB SOLUTION NEB PRN ×2 (12:30→16:15)
[2017-10-19] MEDS ORDERED: ACETAMINOPHEN 325 MG TABLET PO PRN ×2 (12:30→16:15)
[2017-10-19] MEDS ORDERED: ONDANSETRON HCL 4 MG/2 ML VIAL IVP PRN ×2 (12:30→16:15)
[2017-10-19 12:52] LABS: GLUCOSE,POINT OF CARE 367 MG/DL (70-110)
[2017-10-19 13:30] LABS: APPEARANCE,URINE CLEAR (CLEAR); BILIRUBIN,URINE NEGATIVE (NEGATIVE); GLUCOSE, URINE (UA) >=1000 mg/dL (NEGATIVE); KETONES,URINE TRACE mg/dL (NEGATIVE); LEUKOCYTE ESTERASE ,URINE NEGATIVE (NEGATIVE); NITRATE,URINE NEGATIVE (NEGATIVE); OCCULT BLOOD,URINE NEGATIVE (NEGATIVE); PROTEIN,URINE NEGATIVE (NEGATIVE); UROBILINOGEN,URINE 0.2 mg/dL (<=1.0)
[2017-10-19 13:38] VITALS: BP 123/71
[2017-10-19 13:48] LABS: RBC,URINE None Seen /HPF (0-2); WBC,URINE 0-2 /HPF (0-5)
[2017-10-19 13:50] LABS: BACTERIA,URINE None Seen /HPF (None Seen); SQUAMOUS EPITHELIAL CELL,UR Rare /LPF (None Seen)
[2017-10-19] MEDS ORDERED: PNEUMOCOCCAL VACCINE POLYVALENT 0.5 ML VIAL [PPSV23] IM ONE (14:45)
[2017-10-19] MEDS ORDERED: IPRATROPIUM BROMIDE 0.5 MG/2.5 ML NEB SOLUTION NEB SCH (15:00)
[2017-10-19] MEDS ORDERED: ALBUTEROL SULFATE 2.5 MG/0.5 ML NEB SOLUTION NEB SCH (15:00)
[2017-10-19 15:24] VITALS: BP 133/62
[2017-10-19] MEDS ORDERED: BISACODYL 10 MG RECTAL RECTAL SUPPOSITORY PR PRN (16:15)
[2017-10-19] MEDS ORDERED: MAGNESIUM HYDROXIDE SUSPENSION 30 ML UDCUP PO PRN (16:15)
[2017-10-19] MEDS ORDERED: HYDROCODONE/ACETAMINOPHEN 5-325 MG TABLET PO PRN (16:15)
[2017-10-19] MEDS ORDERED: ZOLPIDEM TARTRATE 5 MG TABLET PO PRN (16:15)
[2017-10-19] MEDS ORDERED: MORPHINE SULFATE 2 MG/ML SYRINGE IVP PRN (16:15)
[2017-10-19] MEDS ORDERED: DEXTROSE 50%-WATER 25 GM/50 ML SYRINGE IVP PRN (17:30)
[2017-10-19] MEDS ORDERED: SODIUM CHLORIDE 0.9% 250 ML IV ONE (18:27)
[2017-10-19] MEDS: CefTRIAXone 1 GM/DEXTROSE 50 ML IV SCH (18:28)
[2017-10-19] MEDS: MetFORMIN HCL 500 MG TABLET PO SCH (18:30)
[2017-10-19] MEDS: MethylPREDNISolone SOD SUCC 125 MG/2 ML VIAL IVP SCH ×2 (18:31→23:47)
[2017-10-19] MEDS: INSULIN ASPART 100 UNITS/ML SQ PRN ×2 (18:34→20:42)
[2017-10-19 19:35] VITALS: BP 143/73
[2017-10-19] MEDS: BUDESONIDE 0.5 MG/2 ML NEB SOLUTION NEB SCH (19:35)
[2017-10-19] MEDS: IPRATROPIUM BROMIDE 0.5 MG/2.5 ML NEB SOLUTION NEB SCH (19:36)
[2017-10-19] MEDS: ALBUTEROL SULFATE 2.5 MG/0.5 ML NEB SOLUTION NEB SCH (19:36)
[2017-10-19 20:13] LABS: GLUCOMETER DEV NAME(LOC) 5S 2N; GLUCOSE,POINT OF CARE 397 MG/DL (70-110)
[2017-10-19] MEDS: AZITHROMYCIN 500 MG/NS 250 ML IV SCH (20:32)
[2017-10-19] MEDS: GABAPENTIN 300 MG CAPSULE PO SCH (20:35)
[2017-10-19] MEDS: DIVALPROEX SODIUM 500 MG ER TABLET PO SCH (20:35)
[2017-10-19] MEDS: DOCUSATE SODIUM 100 MG CAPSULE PO SCH (20:35)
[2017-10-19] MEDS: OLANZapine 10 MG TABLET PO SCH (20:35)
[2017-10-19] MEDS: BENZONATATE 100 MG CAPSULE PO SCH (20:35)
[2017-10-19] MEDS: GuaiFENesin SR 600 MG ER TABLET PO SCH (20:35)
[2017-10-19] MEDS: INSULIN DETEMIR 100 UNITS/ML SQ SCH (20:39)
[2017-10-19] MEDS ORDERED: INSULIN ASPART 100 UNITS/ML SQ ONE (20:45)
[2017-10-19] MEDS ORDERED: GuaiFENesin SR 600 MG ER TABLET PO SCH (21:00)
[2017-10-19] MEDS ORDERED: BENZONATATE 100 MG CAPSULE PO SCH (21:00)
[2017-10-19 21:28] LABS: GLUCOMETER DEV NAME(LOC) 5S 1L; GLUCOSE,POINT OF CARE 449 MG/DL (70-110)
[2017-10-19 21:28] LABS: GLUCOMETER DEV NAME(LOC) 5S 1L; GLUCOSE,POINT OF CARE 446 MG/DL (70-110)
[2017-10-19 23:42] VITALS: BP 134/66
[2017-10-19] MEDS: HEPARIN SODIUM,PORCINE 5,000 UNITS/ML VIAL SQ SCH (23:47)
[2017-10-20] MEDS: ALBUTEROL SULFATE 2.5 MG/0.5 ML NEB SOLUTION NEB SCH ×4 (02:25→20:58)
[2017-10-20] MEDS: IPRATROPIUM BROMIDE 0.5 MG/2.5 ML NEB SOLUTION NEB SCH ×4 (02:25→20:58)
[2017-10-20 04:38] VITALS: BP 149/78
[2017-10-20] MEDS: MethylPREDNISolone SOD SUCC 125 MG/2 ML VIAL IVP SCH ×4 (05:52→23:18)
[2017-10-20] MEDS: LEVOTHYROXINE SODIUM 75 MCG TABLET PO SCH (05:53)
[2017-10-20] MEDS: INSULIN ASPART 100 UNITS/ML SQ PRN ×4 (06:22→20:13)
[2017-10-20 07:25] VITALS: BP 141/63
[2017-10-20] MEDS: BUDESONIDE 0.5 MG/2 ML NEB SOLUTION NEB SCH ×2 (07:34→21:09)
[2017-10-20 07:39] LABS: EOSINOPHILS % (AUTO) 0 % (1.0-6.0); HEMATOCRIT 35.6 % (41-53); HEMOGLOBIN 11.9 g/dL (13.5-17.5); LYMPHOCYTES # (AUTO) 0.2 K/uL (1.0-4.8); LYMPHOCYTES % (AUTO) 5.7 % (22.0-44.0); MEAN CORPUSCULAR HEMOGLOBIN 29.5 pg (26.0-34.0); MEAN CORPUSCULAR HGB CONC 33.5 G/dL (31.0-37.0); MEAN CORPUSCULAR VOLUME 88 fL (80-100); MONOCYTES # (AUTO) 0.1 K/uL (0.1-1.0); MONOCYTES % (AUTO) 2.8 % (2.0-9.0); PLATELET COUNT (AUTO) 155 K/uL (150-450); RED BLOOD CELL COUNT(AUTO) 4.04 MIL/uL (4.50-5.90); RED CELL DISTRIBUTION WIDTH 14.7 % (11.5-14.5)
[2017-10-20 07:49] LABS: ALANINE AMINOTRANSFERASE 37 U/L (12-78); ALBUMIN 3.2 g/dL (3.4-5.0); ALKALINE PHOSPHATASE 57 U/L (46-116); ANION GAP 8 mmol/L (8-16); ASPARTATE AMINOTRANSFERASE 39 U/L (15-37); BILIRUBIN,TOTAL 0.3 mg/dL (0.1-1.0); CALCIUM, TOTAL 8.7 mg/dL (8.8-10.5); CARBON DIOXIDE 30 mmol/L (22-29); CHLORIDE 101 mmol/L (98-107); CREATININE 0.98 mg/dL (0.60-1.30); GLOMERULAR FILTR. RATE CALC > 60 mL/min (>60); GLUCOSE,RANDOM 350 mg/dL (70-110); SODIUM SERUM 139 mmol/L (136-145); TOTAL PROTEIN, SERUM 7.1 g/dL (6.4-8.2); UREA NITROGEN, BLOOD 20 mg/dL (7-18)
[2017-10-20 08:13] LABS: NEUTROPHILS % (AUTO) 91.5 % (40.0-70.0)
[2017-10-20] MEDS ORDERED: PANTOPRAZOLE SODIUM 40 MG DR TABLET PO SCH (09:00)
[2017-10-20] MEDS: DOCUSATE SODIUM 100 MG CAPSULE PO SCH ×2 (09:00→22:17)
[2017-10-20] MEDS: GABAPENTIN 300 MG CAPSULE PO SCH ×3 (10:00→22:17)
[2017-10-20] MEDS: LISINOPRIL 20 MG TABLET PO SCH (10:00)
[2017-10-20] MEDS: PANTOPRAZOLE SODIUM 40 MG DR TABLET PO SCH (10:00)
[2017-10-20] MEDS: BENZONATATE 100 MG CAPSULE PO SCH ×3 (10:01→22:17)
[2017-10-20] MEDS: MetFORMIN HCL 500 MG TABLET PO SCH ×2 (10:02→17:34)
[2017-10-20] MEDS: GuaiFENesin SR 600 MG ER TABLET PO SCH (10:02)
[2017-10-20] MEDS: POTASSIUM CHLORIDE 20 MEQ ER TABLET PO SCH (10:02)
[2017-10-20] MEDS: OLANZapine 10 MG TABLET PO SCH ×3 (10:03→22:17)
[2017-10-20] MEDS: DIVALPROEX SODIUM 500 MG ER TABLET PO SCH ×2 (10:03→22:17)
[2017-10-20] MEDS: INSULIN DETEMIR 100 UNITS/ML SQ SCH ×2 (10:07→22:35)
[2017-10-20] MEDS: HEPARIN SODIUM,PORCINE 5,000 UNITS/ML VIAL SQ SCH ×3 (10:14→23:17)
[2017-10-20] MEDS: FUROSEMIDE 40 MG TABLET PO SCH (10:14)
[2017-10-20] MEDS: DILTIAZEM HCL CD 120 MG ER CAPSULE PO SCH (10:15)
[2017-10-20 11:16] VITALS: BP 148/85
[2017-10-20 15:24] VITALS: BP 126/81
[2017-10-20] MEDS: CefTRIAXone 1 GM/DEXTROSE 50 ML IV SCH (17:31)
[2017-10-20] MEDS: AZITHROMYCIN 500 MG/NS 250 ML IV SCH (17:35)
[2017-10-20 20:25] VITALS: BP 144/73
[2017-10-20] MEDS ORDERED: INSULIN ASPART 100 UNITS/ML SQ ONE (22:00)
[2017-10-21 00:13] VITALS: BP 127/81
[2017-10-21] MEDS: GuaiFENesin SR 600 MG ER TABLET PO SCH ×3 (00:41→23:41)
[2017-10-21] MEDS: IPRATROPIUM BROMIDE 0.5 MG/2.5 ML NEB SOLUTION NEB SCH ×4 (02:50→20:39)
[2017-10-21] MEDS: ALBUTEROL SULFATE 2.5 MG/0.5 ML NEB SOLUTION NEB SCH ×4 (02:50→20:39)
[2017-10-21 03:39] LABS: GLUCOMETER DEV NAME(LOC) 5S 1L; GLUCOSE,POINT OF CARE 372 MG/DL (70-110)
[2017-10-21 03:39] LABS: GLUCOMETER DEV NAME(LOC) 5S 1L; GLUCOSE,POINT OF CARE 426 MG/DL (70-110)
[2017-10-21 03:39] LABS: GLUCOMETER DEV NAME(LOC) 5S 1L; GLUCOSE,POINT OF CARE 377 MG/DL (70-110)
[2017-10-21 04:55] VITALS: BP 145/88
[2017-10-21] MEDS: LEVOTHYROXINE SODIUM 75 MCG TABLET PO SCH (06:07)
[2017-10-21] MEDS: MethylPREDNISolone SOD SUCC 125 MG/2 ML VIAL IVP SCH ×4 (06:07→23:44)
[2017-10-21] MEDS: INSULIN ASPART 100 UNITS/ML SQ PRN ×4 (06:09→21:29)
[2017-10-21 07:30] VITALS: BP 150/85
[2017-10-21] MEDS: MetFORMIN HCL 500 MG TABLET PO SCH ×2 (08:00→18:00)
[2017-10-21] MEDS: DOCUSATE SODIUM 100 MG CAPSULE PO SCH ×2 (08:45→21:25)
[2017-10-21] MEDS: GABAPENTIN 300 MG CAPSULE PO SCH ×3 (08:45→21:25)
[2017-10-21] MEDS: DIVALPROEX SODIUM 500 MG ER TABLET PO SCH ×2 (08:45→21:25)
[2017-10-21] MEDS: BENZONATATE 100 MG CAPSULE PO SCH ×3 (08:45→21:26)
[2017-10-21] MEDS: POTASSIUM CHLORIDE 20 MEQ ER TABLET PO SCH (08:45)
[2017-10-21] MEDS: FUROSEMIDE 40 MG TABLET PO SCH (08:45)
[2017-10-21] MEDS: OLANZapine 10 MG TABLET PO SCH ×3 (08:46→21:25)
[2017-10-21] MEDS: LISINOPRIL 20 MG TABLET PO SCH (08:46)
[2017-10-21] MEDS: DILTIAZEM HCL CD 120 MG ER CAPSULE PO SCH (08:54)
[2017-10-21] MEDS: PANTOPRAZOLE SODIUM 40 MG DR TABLET PO SCH (08:56)
[2017-10-21] MEDS: HEPARIN SODIUM,PORCINE 5,000 UNITS/ML VIAL SQ SCH ×3 (08:57→23:41)
[2017-10-21] MEDS: INSULIN DETEMIR 100 UNITS/ML SQ SCH ×2 (08:58→21:30)
[2017-10-21] MEDS: BUDESONIDE 0.5 MG/2 ML NEB SOLUTION NEB SCH ×2 (09:00→20:39)
[2017-10-21 10:09] LABS: EOSINOPHILS % (AUTO) 0 % (1.0-6.0); HEMATOCRIT 35.5 % (41-53); HEMOGLOBIN 11.9 g/dL (13.5-17.5); LYMPHOCYTES # (AUTO) 0.4 K/uL (1.0-4.8); LYMPHOCYTES % (AUTO) 4.6 % (22.0-44.0); MEAN CORPUSCULAR HEMOGLOBIN 29.4 pg (26.0-34.0); MEAN CORPUSCULAR HGB CONC 33.5 G/dL (31.0-37.0); MEAN CORPUSCULAR VOLUME 88 fL (80-100); MONOCYTES # (AUTO) 0.2 K/uL (0.1-1.0); NEUTROPHILS # (AUTO) 7.6 K/uL (1.8-7.7); PLATELET COUNT (AUTO) 186 K/uL (150-450); RED BLOOD CELL COUNT(AUTO) 4.04 MIL/uL (4.50-5.90); RED CELL DISTRIBUTION WIDTH 14.7 % (11.5-14.5)
[2017-10-21 10:18] LABS: ANION GAP 8 mmol/L (8-16); CALCIUM, TOTAL 8.8 mg/dL (8.8-10.5); CARBON DIOXIDE 30 mmol/L (22-29); CHLORIDE 99 mmol/L (98-107); GLOMERULAR FILTR. RATE CALC > 60 mL/min (>60); GLUCOSE,RANDOM 379 mg/dL (70-110); POTASSIUM 4.8 mmol/L (3.5-5.1); SODIUM SERUM 137 mmol/L (136-145); UREA NITROGEN, BLOOD 33 mg/dL (7-18)
[2017-10-21 10:21] LABS: NEUTROPHILS % (AUTO) 93.4 % (40.0-70.0)
[2017-10-21 11:27] VITALS: BP 150/78
[2017-10-21 15:26] VITALS: BP 158/81
[2017-10-21 16:38] LABS: GLUCOMETER DEV NAME(LOC) 5S 2N; GLUCOSE,POINT OF CARE 349 MG/DL (70-110)
[2017-10-21 16:38] LABS: GLUCOMETER DEV NAME(LOC) 5S 2N; GLUCOSE,POINT OF CARE 298 MG/DL (70-110)
[2017-10-21 16:38] LABS: GLUCOMETER DEV NAME(LOC) 5S 2N; GLUCOSE,POINT OF CARE 368 MG/DL (70-110)
[2017-10-21 16:38] LABS: GLUCOMETER DEV NAME(LOC) 5S 2N; GLUCOSE,POINT OF CARE 404 MG/DL (70-110)
[2017-10-21 16:38] LABS: GLUCOMETER DEV NAME(LOC) 5S 2N; GLUCOSE,POINT OF CARE 397 MG/DL (70-110)
[2017-10-21] MEDS: CefTRIAXone 1 GM/DEXTROSE 50 ML IV SCH (16:49)
[2017-10-21] MEDS: AZITHROMYCIN 500 MG/NS 250 ML IV SCH (18:10)
[2017-10-21 19:37] VITALS: BP 155/89
[2017-10-22 00:24] VITALS: BP 139/78
[2017-10-22] MEDS: ALBUTEROL SULFATE 2.5 MG/0.5 ML NEB SOLUTION NEB SCH ×4 (01:56→20:18)
[2017-10-22] MEDS: IPRATROPIUM BROMIDE 0.5 MG/2.5 ML NEB SOLUTION NEB SCH ×4 (01:56→20:18)
[2017-10-22 03:59] VITALS: BP 153/78
[2017-10-22] MEDS: LEVOTHYROXINE SODIUM 75 MCG TABLET PO SCH (05:43)
[2017-10-22] MEDS: MethylPREDNISolone SOD SUCC 125 MG/2 ML VIAL IVP SCH ×4 (05:44→23:28)
[2017-10-22] MEDS: INSULIN ASPART 100 UNITS/ML SQ PRN ×4 (05:55→21:46)
[2017-10-22] MEDS: MetFORMIN HCL 500 MG TABLET PO SCH ×2 (08:00→17:53)
[2017-10-22 08:09] VITALS: BP 145/74
[2017-10-22] MEDS: POTASSIUM CHLORIDE 20 MEQ ER TABLET PO SCH (09:30)
[2017-10-22] MEDS: FUROSEMIDE 40 MG TABLET PO SCH (09:30)
[2017-10-22] MEDS: PANTOPRAZOLE SODIUM 40 MG DR TABLET PO SCH (09:30)
[2017-10-22] MEDS: BENZONATATE 100 MG CAPSULE PO SCH ×3 (09:30→21:42)
[2017-10-22] MEDS: LISINOPRIL 20 MG TABLET PO SCH (09:31)
[2017-10-22] MEDS: GABAPENTIN 300 MG CAPSULE PO SCH ×3 (09:32→21:42)
[2017-10-22] MEDS: OLANZapine 10 MG TABLET PO SCH ×3 (09:32→21:42)
[2017-10-22] MEDS: GuaiFENesin SR 600 MG ER TABLET PO SCH ×2 (09:32→23:27)
[2017-10-22] MEDS: DOCUSATE SODIUM 100 MG CAPSULE PO SCH ×2 (09:32→21:42)
[2017-10-22] MEDS: DIVALPROEX SODIUM 500 MG ER TABLET PO SCH ×2 (09:32→21:42)
[2017-10-22] MEDS: HEPARIN SODIUM,PORCINE 5,000 UNITS/ML VIAL SQ SCH ×3 (09:33→23:27)
[2017-10-22] MEDS: DILTIAZEM HCL CD 120 MG ER CAPSULE PO SCH (09:33)
[2017-10-22] MEDS: INSULIN DETEMIR 100 UNITS/ML SQ SCH ×2 (09:37→21:44)
[2017-10-22 11:25] VITALS: BP 163/86
[2017-10-22] MEDS: BUDESONIDE 0.5 MG/2 ML NEB SOLUTION NEB SCH ×2 (14:32→20:44)
[2017-10-22 15:56] VITALS: BP 143/91
[2017-10-22] MEDS: CefTRIAXone 1 GM/DEXTROSE 50 ML IV SCH (16:16)
[2017-10-22] MEDS: AZITHROMYCIN 500 MG/NS 250 ML IV SCH (17:39)
[2017-10-22] MEDS ORDERED: SODIUM CHLORIDE 0.9% 250 ML IV ONE (18:38)
[2017-10-22 19:23] LABS: GLUCOMETER DEV NAME(LOC) 5S 2N; GLUCOSE,POINT OF CARE 307 MG/DL (70-110)
[2017-10-22 19:23] LABS: GLUCOMETER DEV NAME(LOC) 5S 2N; GLUCOSE,POINT OF CARE 494 MG/DL (70-110)
[2017-10-22 19:23] LABS: GLUCOMETER DEV NAME(LOC) 5S 2N; GLUCOSE,POINT OF CARE 457 MG/DL (70-110)
[2017-10-22 19:27] LABS: GLUCOMETER DEV NAME(LOC) 5S 2N; GLUCOSE,POINT OF CARE 416 MG/DL (70-110)
[2017-10-22 19:53] VITALS: BP 157/96
[2017-10-23 00:11] VITALS: BP 144/85
[2017-10-23] MEDS: IPRATROPIUM BROMIDE 0.5 MG/2.5 ML NEB SOLUTION NEB SCH ×4 (03:05→21:04)
[2017-10-23] MEDS: ALBUTEROL SULFATE 2.5 MG/0.5 ML NEB SOLUTION NEB SCH ×4 (03:05→21:03)
[2017-10-23 04:25] VITALS: BP 159/92
[2017-10-23] MEDS: LEVOTHYROXINE SODIUM 75 MCG TABLET PO SCH (05:37)
[2017-10-23] MEDS: MethylPREDNISolone SOD SUCC 125 MG/2 ML VIAL IVP SCH ×3 (05:37→17:40)
[2017-10-23] MEDS: INSULIN ASPART 100 UNITS/ML SQ PRN ×4 (06:42→21:23)
[2017-10-23 07:25] VITALS: BP 147/85
[2017-10-23] MEDS: BUDESONIDE 0.5 MG/2 ML NEB SOLUTION NEB SCH ×2 (07:48→21:03)
[2017-10-23 07:58] LABS: EOSINOPHILS % (AUTO) 0.01 % (1.0-6.0); HEMATOCRIT 37.5 % (41-53); HEMOGLOBIN 12.3 g/dL (13.5-17.5); LYMPHOCYTES # (AUTO) 0.5 K/uL (1.0-4.8); LYMPHOCYTES % (AUTO) 6.1 % (22.0-44.0); MEAN CORPUSCULAR HGB CONC 32.8 G/dL (31.0-37.0); MEAN CORPUSCULAR VOLUME 88 fL (80-100); MONOCYTES # (AUTO) 0.2 K/uL (0.1-1.0); MONOCYTES % (AUTO) 1.8 % (2.0-9.0); NEUTROPHILS # (AUTO) 8.2 K/uL (1.8-7.7); PLATELET COUNT (AUTO) 195 K/uL (150-450); RED BLOOD CELL COUNT(AUTO) 4.24 MIL/uL (4.50-5.90); RED CELL DISTRIBUTION WIDTH 14.6 % (11.5-14.5)
[2017-10-23 08:01] LABS: NEUTROPHILS % (AUTO) 92.1 % (40.0-70.0)
[2017-10-23] MEDS: BENZONATATE 100 MG CAPSULE PO SCH ×3 (08:44→21:27)
[2017-10-23] MEDS: MetFORMIN HCL 500 MG TABLET PO SCH ×2 (08:44→17:40)
[2017-10-23] MEDS: OLANZapine 10 MG TABLET PO SCH ×3 (08:44→21:27)
[2017-10-23] MEDS: FUROSEMIDE 40 MG TABLET PO SCH (08:44)
[2017-10-23] MEDS: GuaiFENesin SR 600 MG ER TABLET PO SCH (08:44)
[2017-10-23] MEDS: GABAPENTIN 300 MG CAPSULE PO SCH ×3 (08:44→21:27)
[2017-10-23] MEDS: DIVALPROEX SODIUM 500 MG ER TABLET PO SCH ×2 (08:44→21:27)
[2017-10-23] MEDS: DILTIAZEM HCL CD 120 MG ER CAPSULE PO SCH (08:44)
[2017-10-23] MEDS: POTASSIUM CHLORIDE 20 MEQ ER TABLET PO SCH (08:45)
[2017-10-23] MEDS: LISINOPRIL 20 MG TABLET PO SCH (08:45)
[2017-10-23] MEDS: DOCUSATE SODIUM 100 MG CAPSULE PO SCH ×2 (08:45→21:28)
[2017-10-23] MEDS: PANTOPRAZOLE SODIUM 40 MG DR TABLET PO SCH (08:45)
[2017-10-23] MEDS: HEPARIN SODIUM,PORCINE 5,000 UNITS/ML VIAL SQ SCH ×2 (08:47→16:13)
[2017-10-23] MEDS: INSULIN DETEMIR 100 UNITS/ML SQ SCH ×2 (08:47→21:23)
[2017-10-23 08:48] LABS: CALCIUM, TOTAL 8.8 mg/dL (8.8-10.5); CREATININE 1.23 mg/dL (0.60-1.30)
[2017-10-23 09:03] LABS: POTASSIUM 4.7 mmol/L (3.5-5.1)
[2017-10-23 11:50] VITALS: BP 135/71
[2017-10-23 15:52] VITALS: BP 119/78
[2017-10-23] MEDS: CefTRIAXone 1 GM/DEXTROSE 50 ML IV SCH (16:34)
[2017-10-23] MEDS: AZITHROMYCIN 500 MG/NS 250 ML IV SCH (17:40)
[2017-10-23 19:23] VITALS: BP 149/78
[2017-10-23 20:14] LABS: ABG A-A DIFF O2 200.3 mmHg (10-20.0); ABG BASE EXCESS 6.8 mmol/L (-2.0-3.0); ABG CARBOXYHEMOGLOBIN 1.5 % (0.0-1.5); ABG HCO3 29.5 mmol/L (22.0-26.0); ABG METHEMOGLOBIN 0.3 % (0.0-1.5); ABG OXYGEN CONTENT 16.2 mL/dL (15.0-23.0); ABG OXYGEN SATURATION 90.8 % (95.0-98.0); ABG OXYHEMOGLOBIN 89.2 % (94.0-100.0); ABG PCO2 50 mmHg (35-45); ABG PH 7.414 (7.35-7.450); ABG TOTAL HEMOGLOBIN 12.9 G/dL (12.0-18.0); O2 DEVICE,BLOOD GAS OXYMIZER (ROOM AIR); PO2, ARTERIAL BG 63.5 mmHg (79.0-87.0); SITE, BLOOD GAS RT RADIAL; SOURCE, BLOOD GAS ARTERIAL; TEMPERATURE, FAHRENHEIT, BG 98.6 FAHREN (96.0-98.6)
[2017-10-23 23:48] LABS: GLUCOMETER DEV NAME(LOC) 5S 2N; GLUCOSE,POINT OF CARE 417 MG/DL (70-110)
[2017-10-23 23:49] LABS: GLUCOMETER DEV NAME(LOC) 5S 2N; GLUCOSE,POINT OF CARE 344 MG/DL (70-110)
[2017-10-23 23:49] LABS: GLUCOMETER DEV NAME(LOC) 5S 2N; GLUCOSE,POINT OF CARE 337 MG/DL (70-110)
[2017-10-24] VITALS (7 sets, daily range): BP systolic 115–165; BP diastolic 66–96
[2017-10-24] MEDS: HEPARIN SODIUM,PORCINE 5,000 UNITS/ML VIAL SQ SCH ×3 (00:02→16:58)
[2017-10-24] MEDS: GuaiFENesin SR 600 MG ER TABLET PO SCH ×3 (00:06→22:31)
[2017-10-24] MEDS: MethylPREDNISolone SOD SUCC 125 MG/2 ML VIAL IVP SCH ×4 (00:06→17:00)
[2017-10-24] MEDS: IPRATROPIUM BROMIDE 0.5 MG/2.5 ML NEB SOLUTION NEB SCH ×4 (02:00→20:06)
[2017-10-24] MEDS: ALBUTEROL SULFATE 2.5 MG/0.5 ML NEB SOLUTION NEB SCH ×4 (02:00→20:06)
[2017-10-24] MEDS: INSULIN ASPART 100 UNITS/ML SQ PRN ×4 (06:22→20:43)
[2017-10-24] MEDS: LEVOTHYROXINE SODIUM 75 MCG TABLET PO SCH (06:58)
[2017-10-24 07:44] LABS: EOSINOPHILS % (AUTO) 0 % (1.0-6.0); HEMATOCRIT 36.8 % (41-53); HEMOGLOBIN 12.1 g/dL (13.5-17.5); LYMPHOCYTES # (AUTO) 0.5 K/uL (1.0-4.8); LYMPHOCYTES % (AUTO) 6.2 % (22.0-44.0); MEAN CORPUSCULAR HGB CONC 32.9 G/dL (31.0-37.0); MEAN CORPUSCULAR VOLUME 88 fL (80-100); MONOCYTES # (AUTO) 0.2 K/uL (0.1-1.0); MONOCYTES % (AUTO) 2.2 % (2.0-9.0); NEUTROPHILS # (AUTO) 7.3 K/uL (1.8-7.7); PLATELET COUNT (AUTO) 197 K/uL (150-450); RED BLOOD CELL COUNT(AUTO) 4.17 MIL/uL (4.50-5.90); RED CELL DISTRIBUTION WIDTH 14.4 % (11.5-14.5)
[2017-10-24 08:19] LABS: NEUTROPHILS % (AUTO) 91.6 % (40.0-70.0)
[2017-10-24 08:38] LABS: CALCIUM, TOTAL 8.7 mg/dL (8.8-10.5); CARBON DIOXIDE 34 mmol/L (22-29); CREATININE 1.13 mg/dL (0.60-1.30); GLOMERULAR FILTR. RATE CALC > 60 mL/min (>60); GLUCOSE,RANDOM 307 mg/dL (70-110); UREA NITROGEN, BLOOD 32 mg/dL (7-18)
[2017-10-24] MEDS: BUDESONIDE 0.5 MG/2 ML NEB SOLUTION NEB SCH ×2 (08:39→20:06)
[2017-10-24 08:51] LABS: ANION GAP 5 mmol/L (8-16); CHLORIDE 99 mmol/L (98-107); POTASSIUM 4.7 mmol/L (3.5-5.1); SODIUM SERUM 138 mmol/L (136-145)
[2017-10-24] MEDS: GABAPENTIN 300 MG CAPSULE PO SCH ×3 (09:02→21:52)
[2017-10-24] MEDS: DOCUSATE SODIUM 100 MG CAPSULE PO SCH ×2 (09:02→21:52)
[2017-10-24] MEDS: DILTIAZEM HCL CD 120 MG ER CAPSULE PO SCH (09:03)
[2017-10-24] MEDS: LISINOPRIL 20 MG TABLET PO SCH (09:03)
[2017-10-24] MEDS: BENZONATATE 100 MG CAPSULE PO SCH ×3 (09:03→21:52)
[2017-10-24] MEDS: PANTOPRAZOLE SODIUM 40 MG DR TABLET PO SCH (09:03)
[2017-10-24] MEDS: OLANZapine 10 MG TABLET PO SCH ×3 (09:04→21:52)
[2017-10-24] MEDS: DIVALPROEX SODIUM 500 MG ER TABLET PO SCH ×2 (09:04→21:52)
[2017-10-24] MEDS: FUROSEMIDE 40 MG TABLET PO SCH (09:04)
[2017-10-24] MEDS: MetFORMIN HCL 500 MG TABLET PO SCH ×2 (09:05→17:03)
[2017-10-24] MEDS: INSULIN DETEMIR 100 UNITS/ML SQ SCH ×2 (09:11→20:41)
[2017-10-24] MEDS: POTASSIUM CHLORIDE 20 MEQ ER TABLET PO SCH (09:12)
[2017-10-24 10:42] LABS: GLUCOMETER DEV NAME(LOC) 5S 2N; GLUCOSE,POINT OF CARE 317 MG/DL (70-110)
[2017-10-24 10:42] LABS: GLUCOMETER DEV NAME(LOC) 5S 2N; GLUCOSE,POINT OF CARE 349 MG/DL (70-110)
[2017-10-24 15:33] LABS: GLUCOMETER DEV NAME(LOC) 5S 1L; GLUCOSE,POINT OF CARE 314 MG/DL (70-110)
[2017-10-24 15:33] LABS: GLUCOMETER DEV NAME(LOC) 5S 1L; GLUCOSE,POINT OF CARE 362 MG/DL (70-110)
[2017-10-24 15:33] LABS: GLUCOMETER DEV NAME(LOC) 5S 1L; GLUCOSE,POINT OF CARE 351 MG/DL (70-110)
[2017-10-24 15:33] LABS: GLUCOMETER DEV NAME(LOC) 5S 1L; GLUCOSE,POINT OF CARE 308 MG/DL (70-110)
[2017-10-24 15:34] LABS: GLUCOMETER DEV NAME(LOC) 5S 1L; GLUCOSE,POINT OF CARE 368 MG/DL (70-110)
[2017-10-24] MEDS: CefTRIAXone 1 GM/DEXTROSE 50 ML IV SCH (16:59)
[2017-10-24] MEDS: AZITHROMYCIN 500 MG/NS 250 ML IV SCH (17:48)
[2017-10-24] MEDS ORDERED: DILT-39 PO (20:23)
[2017-10-24] MEDS ORDERED: INSULIN ASPART 100 UNITS/ML SQ ONE (20:30)
[2017-10-25] MEDS: MethylPREDNISolone SOD SUCC 125 MG/2 ML VIAL IVP SCH ×4 (00:17→16:53)
[2017-10-25] MEDS: HEPARIN SODIUM,PORCINE 5,000 UNITS/ML VIAL SQ SCH ×3 (00:17→16:54)
[2017-10-25] MEDS: IPRATROPIUM BROMIDE 0.5 MG/2.5 ML NEB SOLUTION NEB SCH ×4 (02:28→19:59)
[2017-10-25] MEDS: ALBUTEROL SULFATE 2.5 MG/0.5 ML NEB SOLUTION NEB SCH ×4 (02:28→19:59)
[2017-10-25 04:12] VITALS: BP 155/82
[2017-10-25] MEDS: LEVOTHYROXINE SODIUM 75 MCG TABLET PO SCH (06:12)
[2017-10-25] MEDS: INSULIN ASPART 100 UNITS/ML SQ PRN ×4 (06:13→22:30)
[2017-10-25 07:23] VITALS: BP 151/89
[2017-10-25] MEDS: MetFORMIN HCL 500 MG TABLET PO SCH ×2 (08:06→16:54)
[2017-10-25] MEDS: PANTOPRAZOLE SODIUM 40 MG DR TABLET PO SCH (08:07)
[2017-10-25] MEDS: LISINOPRIL 20 MG TABLET PO SCH (08:07)
[2017-10-25] MEDS: GABAPENTIN 300 MG CAPSULE PO SCH ×3 (08:07→22:26)
[2017-10-25] MEDS: FUROSEMIDE 40 MG TABLET PO SCH (08:07)
[2017-10-25] MEDS: DILTIAZEM HCL CD 120 MG ER CAPSULE PO SCH (08:08)
[2017-10-25] MEDS: GuaiFENesin SR 600 MG ER TABLET PO SCH ×2 (08:08→22:26)
[2017-10-25] MEDS: DOCUSATE SODIUM 100 MG CAPSULE PO SCH ×2 (08:08→22:26)
[2017-10-25] MEDS: BENZONATATE 100 MG CAPSULE PO SCH ×3 (08:08→22:26)
[2017-10-25] MEDS: OLANZapine 10 MG TABLET PO SCH ×3 (08:09→22:27)
[2017-10-25] MEDS: DIVALPROEX SODIUM 500 MG ER TABLET PO SCH ×2 (08:09→22:26)
[2017-10-25] MEDS: BUDESONIDE 0.5 MG/2 ML NEB SOLUTION NEB SCH ×2 (08:09→19:59)
[2017-10-25] MEDS: POTASSIUM CHLORIDE 20 MEQ ER TABLET PO SCH (08:10)
[2017-10-25] MEDS: INSULIN DETEMIR 100 UNITS/ML SQ SCH ×2 (08:21→22:29)
[2017-10-25 08:39] LABS: EOSINOPHILS % (AUTO) 0 % (1.0-6.0); HEMATOCRIT 40.1 % (41-53); HEMOGLOBIN 13.4 g/dL (13.5-17.5); LYMPHOCYTES # (AUTO) 0.6 K/uL (1.0-4.8); MEAN CORPUSCULAR HEMOGLOBIN 29.1 pg (26.0-34.0); MEAN CORPUSCULAR HGB CONC 33.4 G/dL (31.0-37.0); MEAN CORPUSCULAR VOLUME 87 fL (80-100); MONOCYTES # (AUTO) 0.2 K/uL (0.1-1.0); MONOCYTES % (AUTO) 2.2 % (2.0-9.0); NEUTROPHILS # (AUTO) 8.5 K/uL (1.8-7.7); PLATELET COUNT (AUTO) 227 K/uL (150-450); RED CELL DISTRIBUTION WIDTH 14.3 % (11.5-14.5)
[2017-10-25 08:55] LABS: NEUTROPHILS % (AUTO) 91.8 % (40.0-70.0)
[2017-10-25 09:01] LABS: ANION GAP 7 mmol/L (8-16); CALCIUM, TOTAL 8.8 mg/dL (8.8-10.5); CARBON DIOXIDE 35 mmol/L (22-29); CHLORIDE 96 mmol/L (98-107); CREATININE 1.06 mg/dL (0.60-1.30); GLOMERULAR FILTR. RATE CALC > 60 mL/min (>60); GLUCOSE,RANDOM 272 mg/dL (70-110); POTASSIUM 4.6 mmol/L (3.5-5.1); SODIUM SERUM 138 mmol/L (136-145); UREA NITROGEN, BLOOD 29 mg/dL (7-18)
[2017-10-25 11:15] VITALS: BP 150/82
[2017-10-25 16:35] VITALS: BP 157/89
[2017-10-25] MEDS: CefTRIAXone 1 GM/DEXTROSE 50 ML IV SCH (16:54)
[2017-10-25] MEDS: AZITHROMYCIN 500 MG/NS 250 ML IV SCH (17:39)
[2017-10-25 19:26] VITALS: BP 152/76
[2017-10-25 23:22] VITALS: BP 150/79
[2017-10-26] MEDS: MethylPREDNISolone SOD SUCC 125 MG/2 ML VIAL IVP SCH ×5 (00:17→23:41)
[2017-10-26] MEDS: HEPARIN SODIUM,PORCINE 5,000 UNITS/ML VIAL SQ SCH ×4 (00:18→23:41)
[2017-10-26] MEDS: IPRATROPIUM BROMIDE 0.5 MG/2.5 ML NEB SOLUTION NEB SCH ×4 (02:57→21:19)
[2017-10-26] MEDS: ALBUTEROL SULFATE 2.5 MG/0.5 ML NEB SOLUTION NEB SCH ×4 (02:57→21:19)
[2017-10-26 04:22] VITALS: BP 139/79
[2017-10-26] MEDS: LEVOTHYROXINE SODIUM 75 MCG TABLET PO SCH (05:44)
[2017-10-26] MEDS: INSULIN ASPART 100 UNITS/ML SQ PRN ×4 (06:10→21:27)
[2017-10-26 07:08] LABS: GLUCOMETER DEV NAME(LOC) 5S 2N; GLUCOSE,POINT OF CARE 409 MG/DL (70-110)
[2017-10-26 07:08] LABS: GLUCOMETER DEV NAME(LOC) 5S 2N; GLUCOSE,POINT OF CARE 348 MG/DL (70-110)
[2017-10-26 07:11] VITALS: BP 157/88
[2017-10-26 07:13] LABS: GLUCOMETER DEV NAME(LOC) 5S 2N; GLUCOSE,POINT OF CARE 288 MG/DL (70-110)
[2017-10-26 07:13] LABS: GLUCOMETER DEV NAME(LOC) 5S 2N; GLUCOSE,POINT OF CARE 368 MG/DL (70-110)
[2017-10-26 07:13] LABS: GLUCOMETER DEV NAME(LOC) 5S 2N; GLUCOSE,POINT OF CARE 293 MG/DL (70-110)
[2017-10-26 08:28] LABS: EOSINOPHILS % (AUTO) 0.04 % (1.0-6.0); HEMATOCRIT 39.6 % (41-53); HEMOGLOBIN 12.8 g/dL (13.5-17.5); LYMPHOCYTES # (AUTO) 0.5 K/uL (1.0-4.8); LYMPHOCYTES % (AUTO) 5.5 % (22.0-44.0); MEAN CORPUSCULAR HEMOGLOBIN 28.7 pg (26.0-34.0); MEAN CORPUSCULAR HGB CONC 32.4 G/dL (31.0-37.0); MEAN CORPUSCULAR VOLUME 89 fL (80-100); MONOCYTES # (AUTO) 0.3 K/uL (0.1-1.0); MONOCYTES % (AUTO) 3.1 % (2.0-9.0); NEUTROPHILS # (AUTO) 8.6 K/uL (1.8-7.7); PLATELET COUNT (AUTO) 172 K/uL (150-450); RED BLOOD CELL COUNT(AUTO) 4.47 MIL/uL (4.50-5.90); RED CELL DISTRIBUTION WIDTH 14.5 % (11.5-14.5)
[2017-10-26] MEDS: BUDESONIDE 0.5 MG/2 ML NEB SOLUTION NEB SCH ×2 (08:33→21:18)
[2017-10-26 08:53] LABS: NEUTROPHILS % (AUTO) 91.3 % (40.0-70.0)
[2017-10-26 09:01] LABS: ANION GAP 7 mmol/L (8-16); CARBON DIOXIDE 37 mmol/L (22-29); CHLORIDE 95 mmol/L (98-107); CREATININE 1.01 mg/dL (0.60-1.30); GLOMERULAR FILTR. RATE CALC > 60 mL/min (>60); GLUCOSE,RANDOM 261 mg/dL (70-110); POTASSIUM 4.5 mmol/L (3.5-5.1); SODIUM SERUM 139 mmol/L (136-145); UREA NITROGEN, BLOOD 28 mg/dL (7-18)
[2017-10-26] MEDS: MetFORMIN HCL 500 MG TABLET PO SCH ×2 (09:23→17:18)
[2017-10-26] MEDS: PANTOPRAZOLE SODIUM 40 MG DR TABLET PO SCH (09:24)
[2017-10-26] MEDS: POTASSIUM CHLORIDE 20 MEQ ER TABLET PO SCH (09:24)
[2017-10-26] MEDS: FUROSEMIDE 40 MG TABLET PO SCH (09:24)
[2017-10-26] MEDS: BENZONATATE 100 MG CAPSULE PO SCH ×3 (09:24→20:47)
[2017-10-26] MEDS: DIVALPROEX SODIUM 500 MG ER TABLET PO SCH ×2 (09:24→20:47)
[2017-10-26] MEDS: LISINOPRIL 20 MG TABLET PO SCH (09:24)
[2017-10-26] MEDS: GABAPENTIN 300 MG CAPSULE PO SCH ×3 (09:24→20:47)
[2017-10-26] MEDS: GuaiFENesin SR 600 MG ER TABLET PO SCH ×2 (09:24→20:47)
[2017-10-26] MEDS: OLANZapine 10 MG TABLET PO SCH ×3 (09:24→20:47)
[2017-10-26] MEDS: DILTIAZEM HCL CD 120 MG ER CAPSULE PO SCH (09:24)
[2017-10-26] MEDS: DOCUSATE SODIUM 100 MG CAPSULE PO SCH ×2 (09:25→20:47)
[2017-10-26] MEDS: INSULIN DETEMIR 100 UNITS/ML SQ SCH ×2 (09:27→21:28)
[2017-10-26 15:10] VITALS: BP 140/78
[2017-10-26] MEDS: CefTRIAXone 1 GM/DEXTROSE 50 ML IV SCH (16:14)
[2017-10-26] MEDS ORDERED: SODIUM CHLORIDE 0.9% 100 ML ONE (16:17)
[2017-10-26] MEDS: AZITHROMYCIN 500 MG/NS 250 ML IV SCH (17:41)
[2017-10-26 18:14] LABS: GLUCOMETER DEV NAME(LOC) 5S 1L; GLUCOSE,POINT OF CARE 443 MG/DL (70-110)
[2017-10-26 18:14] LABS: GLUCOMETER DEV NAME(LOC) 5S 1L; GLUCOSE,POINT OF CARE 268 MG/DL (70-110)
[2017-10-26 18:14] LABS: GLUCOMETER DEV NAME(LOC) 5S 1L; GLUCOSE,POINT OF CARE 281 MG/DL (70-110)
[2017-10-26 18:14] LABS: GLUCOMETER DEV NAME(LOC) 5S 1L; GLUCOSE,POINT OF CARE 338 MG/DL (70-110)
[2017-10-26 18:14] LABS: GLUCOMETER DEV NAME(LOC) 5S 1L; GLUCOSE,POINT OF CARE 327 MG/DL (70-110)
[2017-10-26 18:14] LABS: GLUCOMETER DEV NAME(LOC) 5S 1L; GLUCOSE,POINT OF CARE 319 MG/DL (70-110)
[2017-10-26 19:36] VITALS: BP 157/94
[2017-10-26 23:37] VITALS: BP 157/79
[2017-10-27] MEDS: ALBUTEROL SULFATE 2.5 MG/0.5 ML NEB SOLUTION NEB SCH ×3 (01:44→13:33)
[2017-10-27] MEDS: IPRATROPIUM BROMIDE 0.5 MG/2.5 ML NEB SOLUTION NEB SCH ×3 (01:45→13:33)
[2017-10-27 04:56] VITALS: BP 152/81
[2017-10-27] MEDS: MethylPREDNISolone SOD SUCC 125 MG/2 ML VIAL IVP SCH ×3 (05:54→18:08)
[2017-10-27] MEDS: LEVOTHYROXINE SODIUM 75 MCG TABLET PO SCH (05:54)
[2017-10-27] MEDS: INSULIN ASPART 100 UNITS/ML SQ PRN ×3 (05:59→18:10)
[2017-10-27] MEDS: BUDESONIDE 0.5 MG/2 ML NEB SOLUTION NEB SCH (07:46)
[2017-10-27 07:48] LABS: EOSINOPHILS % (AUTO) 0 % (1.0-6.0); HEMATOCRIT 38.9 % (41-53); HEMOGLOBIN 12.7 g/dL (13.5-17.5); LYMPHOCYTES # (AUTO) 0.5 K/uL (1.0-4.8); LYMPHOCYTES % (AUTO) 5.7 % (22.0-44.0); MEAN CORPUSCULAR HEMOGLOBIN 29.1 pg (26.0-34.0); MEAN CORPUSCULAR HGB CONC 32.7 G/dL (31.0-37.0); MEAN CORPUSCULAR VOLUME 89 fL (80-100); MONOCYTES # (AUTO) 0.2 K/uL (0.1-1.0); MONOCYTES % (AUTO) 2.6 % (2.0-9.0); PLATELET COUNT (AUTO) 161 K/uL (150-450); RED BLOOD CELL COUNT(AUTO) 4.38 MIL/uL (4.50-5.90); RED CELL DISTRIBUTION WIDTH 14.8 % (11.5-14.5)
[2017-10-27 08:00] VITALS: BP 155/87
[2017-10-27 08:00] LABS: NEUTROPHILS % (AUTO) 91.7 % (40.0-70.0)
[2017-10-27] MEDS ORDERED: OXYGEN THERAPY IH SCH (08:00)
[2017-10-27] MEDS: GABAPENTIN 300 MG CAPSULE PO SCH ×2 (08:57→16:00)
[2017-10-27] MEDS: LISINOPRIL 20 MG TABLET PO SCH (08:57)
[2017-10-27] MEDS: MetFORMIN HCL 500 MG TABLET PO SCH ×2 (08:57→18:08)
[2017-10-27] MEDS: DIVALPROEX SODIUM 500 MG ER TABLET PO SCH (08:58)
[2017-10-27] MEDS: FUROSEMIDE 40 MG TABLET PO SCH (08:58)
[2017-10-27] MEDS: DOCUSATE SODIUM 100 MG CAPSULE PO SCH (08:58)
[2017-10-27] MEDS: OLANZapine 10 MG TABLET PO SCH ×2 (08:58→16:00)
[2017-10-27] MEDS: GuaiFENesin SR 600 MG ER TABLET PO SCH (08:58)
[2017-10-27] MEDS: PANTOPRAZOLE SODIUM 40 MG DR TABLET PO SCH (08:58)
[2017-10-27] MEDS: DILTIAZEM HCL CD 120 MG ER CAPSULE PO SCH (08:58)
[2017-10-27] MEDS: HEPARIN SODIUM,PORCINE 5,000 UNITS/ML VIAL SQ SCH ×2 (08:59→16:00)
[2017-10-27] MEDS: POTASSIUM CHLORIDE 20 MEQ ER TABLET PO SCH (08:59)
[2017-10-27] MEDS: BENZONATATE 100 MG CAPSULE PO SCH ×2 (09:00→16:00)
[2017-10-27] MEDS: INSULIN DETEMIR 100 UNITS/ML SQ SCH (09:09)
[2017-10-27 11:54] VITALS: BP 136/71
[2017-10-27 15:48] VITALS: BP 139/76
[2017-10-27] MEDS: CefTRIAXone 1 GM/DEXTROSE 50 ML IV SCH (16:00)
[2017-10-27] MEDS ORDERED: A20IH1 IH (16:25)
[2017-10-27] MEDS ORDERED: BENZ-51 PO (16:25)
[2017-10-27] MEDS ORDERED: BUDE0.5A3 NEB (16:26)
[2017-10-27] MEDS ORDERED: CEFT1PB IV (16:28)
[2017-10-27] MEDS ORDERED: DSS100 PO (16:28)
[2017-10-27] MEDS ORDERED: INSU100V12 SQ ×2 (16:31)
[2017-10-27] MEDS ORDERED: IPRNEB IH (16:32)
[2017-10-27] MEDS ORDERED: SM40I IVP (16:33)
[2017-10-27] MEDS ORDERED: PANT40TA25 PO (16:34)
[2017-10-27] MEDS: AZITHROMYCIN 500 MG/NS 250 ML IV SCH (17:41)
[2017-10-27 19:13] LABS: GLUCOMETER DEV NAME(LOC) 5S 2N; GLUCOSE,POINT OF CARE 279 MG/DL (70-110)
[2017-10-29 22:33] LABS: GLUCOMETER DEV NAME(LOC) 5S 1L; GLUCOSE,POINT OF CARE 342 MG/DL (70-110)
[2017-10-29 22:34] LABS: GLUCOMETER DEV NAME(LOC) 5S 1L; GLUCOSE,POINT OF CARE 332 MG/DL (70-110)
[2017-10-29 22:34] LABS: GLUCOMETER DEV NAME(LOC) 5S 1L; GLUCOSE,POINT OF CARE 359 MG/DL (70-110)
[2017-10-29 22:34] LABS: GLUCOMETER DEV NAME(LOC) 5S 1L; GLUCOSE,POINT OF CARE 221 MG/DL (70-110)
== END 2017-10-27 18:30 | DRG 189 ==
LOC: EMS 08:00 → 5S 12:54
PROVIDERS: ADMIT Internal Medicine; ATTEND Internal Medicine
PROC: 5A09357 Assistance with Respiratory Ventilation, Less than 24 Consecutive Hours, Continuous Positive Airway Pressure (ICD-10-PCS; principal; 2017-10-19)
PROC: 5A09357 Assistance with Respiratory Ventilation, Less than 24 Consecutive Hours, Continuous Positive Airway Pressure (ICD-10-PCS; 2017-10-20)
PROC: 5A09357 Assistance with Respiratory Ventilation, Less than 24 Consecutive Hours, Continuous Positive Airway Pressure (ICD-10-PCS; 2017-10-21)
PROC: 5A09357 Assistance with Respiratory Ventilation, Less than 24 Consecutive Hours, Continuous Positive Airway Pressure (ICD-10-PCS; 2017-10-23)
DX: J96.01 Acute respiratory failure with hypoxia (principal); I11.0 Hypertensive heart disease with heart failure; E66.01 Morbid (severe) obesity due to excess calories; I50.9 Heart failure, unspecified; Z68.43 Body mass index [BMI] 50.0-59.9, adult; E03.9 Hypothyroidism, unspecified; G47.33 Obstructive sleep apnea (adult) (pediatric); E11.9 Type 2 diabetes mellitus without complications; F20.9 Schizophrenia, unspecified; J96.02 Acute respiratory failure with hypercapnia; Z79.4 Long term (current) use of insulin; Z79.899 Other long term (current) drug therapy; Z90.49 Acquired absence of other specified parts of digestive tract; Z91.19 Patient's noncompliance with other medical treatment and regimen
CPT/HCPCS: 71260; 82805; 82962; 83605; 87040; 87804; 90471; 93005; 93306; 93970; 94640; 94644; 94645; 94660; 96365; 96366; 96367; 96375; 97116; 97162; 97530; 99291; J0456; J0692; J0696; J1644; J1815; J2930; J3370; J7050; J7060

== ENCOUNTER → 2019-04-11 | Outpatient (CLI) | payer OTHER ==
[~2019-04-11] MED LIST changes: +A20IH1 IH; -ALPR0.255 PO; +BENZ-51 PO; +BUDE0.5A3 NEB; +CEFT1PB IV; +DILT-39 PO; +DIVA500T52 PO; +DSS100 PO; +FURO40 PO; +GABA-531 PO; -HTN MED PO; +INSU100V12 SQ; +IPRNEB IH; +KDUR20 PO; +LEVO75 PO; +LISI-662 PO; +METF-960 PO; -METF500T4 PO; +OLAN10TA3 PO; +PANT40TA25 PO; +SM40I IVP
== END | disposition home or self-care (01) ==
LOC: RADPV 13:07
PROVIDERS: ATTEND Legal Medicine
DX: M79.605 Pain in left leg (principal); R22.42 Localized swelling, mass and lump, left lower limb
CPT/HCPCS: 93971

== ENCOUNTER 2020-10-03 07:17 | Day surgery (SDC) | payer MEDICARE, OTHER ==
[2020-10-01 15:26] LABS: COVID AG,FIA SOURCE NASOPHARYNGEAL
[~2020-10-03] VITALS: Ht 182.9 cm; Wt 158.2 kg
[~2020-10-03 07:17] MED LIST changes: +DIVA-80 PO; -DIVA500T52 PO; +GABA-1181 PO; -GABA-531 PO; -KDUR20 PO; +KETOROLAC TROMETHAMINE 0.5% 5 ML OPHTHALMIC SOLUTION ONE; +MOXIFLOXACIN HCL 0.5% 3 ML OPHTHALMIC SOLUTION ONE; +PANT-31 PO; -PANT40TA25 PO; +PHENYLEPHRINE HCL 2.5% 2 ML OPHTHALMIC SOLUTION ONE; +POTA20TA83 PO
[2020-10-03] MEDS ORDERED: RINGERS SOLUTION,LACTATED 500 ML IV ONE (07:30)
[2020-10-03] MEDS: MOXIFLOXACIN HCL 0.5% 3 ML OPHTHALMIC SOLUTION OS SCH ×3 (07:50→08:10)
[2020-10-03] MEDS: KETOROLAC TROMETHAMINE 0.5% 5 ML OPHTHALMIC SOLUTION OS SCH ×3 (07:50→08:10)
[2020-10-03] MEDS: PHENYLEPHRINE HCL 2.5% 2 ML OPHTHALMIC SOLUTION OS SCH ×3 (07:50→08:10)
[2020-10-03] MEDS ORDERED: TROPICAMIDE 1% 2 ML OPHTHALMIC SOLUTION ONE (07:51)
[2020-10-03] MEDS: TROPICAMIDE 1% 2 ML OPHTHALMIC SOLUTION OS SCH ×3 (07:51→08:10)
[2020-10-03 08:13] LABS: GLUCOMETER DEV NAME(LOC) SDS.; GLUCOSE,POINT OF CARE 74 MG/DL (70-110)
[2020-10-03] MEDS ORDERED: HYALURONATE SOD/CHONDROITIN SOD 0.5 ML VIAL IO ONE (09:17)
[2020-10-03] MEDS ORDERED: POVIDONE-IODINE 10% 15 ML SOLUTION UD ONE (09:17)
[2020-10-03] MEDS ORDERED: TETRACAINE HCL VISCOUS 0.5% 5 ML OPHTHALMIC SOLUTION ONE (09:17)
[2020-10-03] MEDS ORDERED: HYALURONATE SODIUM 12 MG/ML 0.8 ML SYRINGE IO ONE (09:17)
[2020-10-03] MEDS ORDERED: LIDOCAINE/PF 1% 2 ML VIAL ONE (09:17)
[2020-10-03] MEDS ORDERED: EPINEPHrine 1:1,000 [1 MG/ML] AMP ONE (09:17)
[2020-10-03] MEDS ORDERED: FentaNYL CITRATE-PF 100 MCG/2 ML VIAL IVP ONE (12:00)
[2020-10-03] MEDS ORDERED: MIDAZOLAM HCL 2 MG/2 ML VIAL IVP ONE (12:00)
== END 2020-10-03 09:50 | disposition home or self-care (01) ==
LOC: SURGERY 07:17
PROVIDERS: ATTEND Ophthalmology
DX: E11.36 Type 2 diabetes mellitus with diabetic cataract (principal); H25.12 Age-related nuclear cataract, left eye; I10 Essential (primary) hypertension; F31.9 Bipolar disorder, unspecified; Z90.49 Acquired absence of other specified parts of digestive tract; Z98.890 Other specified postprocedural states; Z90.89 Acquired absence of other organs; Z20.828 Contact with and (suspected) exposure to other viral communicable diseases; Z72.89 Other problems related to lifestyle
CPT/HCPCS: 66984; 82962; 87426; 93005; C9803; J0171; J2250; J3010; J3490 ×2; V2632

== ENCOUNTER 2020-11-07 05:09 | Day surgery (SDC) | payer MEDICARE, OTHER ==
[2020-11-05 13:24] LABS: COVID AG,FIA SOURCE NASOPHARYNGEAL
[~2020-11-07] VITALS: Ht 182.9 cm; Wt 158.2 kg
[~2020-11-07 05:09] MED LIST changes: -KETOROLAC TROMETHAMINE 0.5% 5 ML OPHTHALMIC SOLUTION ONE; -LISI-662 PO; +LISI-894 PO; -MOXIFLOXACIN HCL 0.5% 3 ML OPHTHALMIC SOLUTION ONE; -PHENYLEPHRINE HCL 2.5% 2 ML OPHTHALMIC SOLUTION ONE; +RINGERS SOLUTION,LACTATED 500 ML IV ONE
[2020-11-07] MEDS ORDERED: FentaNYL CITRATE PF 100 MCG/2 ML VIAL IVP ONE (05:10)
[2020-11-07] MEDS ORDERED: MIDAZOLAM HCL 2 MG/2 ML VIAL IVP ONE (05:10)
[2020-11-07] MEDS ORDERED: RINGERS SOLUTION,LACTATED 500 ML IV ONE (05:15)
[2020-11-07] MEDS ORDERED: MOXIFLOXACIN HCL 0.5% 3 ML OPHTHALMIC SOLUTION ONE (05:15)
[2020-11-07] MEDS ORDERED: KETOROLAC TROMETHAMINE 0.5% 5 ML OPHTHALMIC SOLUTION ONE (05:16)
[2020-11-07] MEDS ORDERED: PHENYLEPHRINE HCL 2.5% 2 ML OPHTHALMIC SOLUTION ONE (05:16)
[2020-11-07] MEDS ORDERED: TROPICAMIDE 1% 2 ML OPHTHALMIC SOLUTION ONE (05:16)
[2020-11-07] MEDS: TROPICAMIDE 1% 2 ML OPHTHALMIC SOLUTION OD SCH ×3 (06:00→06:11)
[2020-11-07] MEDS: PHENYLEPHRINE HCL 2.5% 2 ML OPHTHALMIC SOLUTION OD SCH ×3 (06:00→06:11)
[2020-11-07] MEDS: KETOROLAC TROMETHAMINE 0.5% 5 ML OPHTHALMIC SOLUTION OD SCH ×3 (06:00→06:11)
[2020-11-07] MEDS: MOXIFLOXACIN HCL 0.5% 3 ML OPHTHALMIC SOLUTION OD SCH ×3 (06:00→06:11)
[2020-11-07 06:09] LABS: GLUCOMETER DEV NAME(LOC) SDS.; GLUCOSE,POINT OF CARE 84 MG/DL (70-110)
[2020-11-07] MEDS ORDERED: HYALURONATE SODIUM 12 MG/ML 0.8 ML SYRINGE IO ONE (17:23)
[2020-11-07] MEDS ORDERED: HYALURONATE SOD/CHONDROITIN SOD 0.5 ML VIAL IO ONE (17:23)
[2020-11-07] MEDS ORDERED: LIDOCAINE/PF 1% 2 ML VIAL ONE (17:23)
[2020-11-07] MEDS ORDERED: TETRACAINE HCL/PF 0.5% 4 ML OPHTHALMIC SOLUTION ONE (17:23)
[2020-11-07] MEDS ORDERED: EPINEPHrine 1:10,000 [1 MG/10 ML] SYRINGE ONE (17:23)
[2020-11-07] MEDS ORDERED: BALANCED SALT 15 ML OPHTHALMIC IRRIG.SOLN ONE (17:23)
[2020-11-07] MEDS ORDERED: POVIDONE-IODINE 10% 15 ML SOLUTION UD ONE (17:23)
[2020-11-07] MEDS ORDERED: PrednisoLONE ACETATE 1% 5 ML OPHTHALMIC SUSPENSION ONE (17:23)
== END 2020-11-07 08:30 | disposition home or self-care (01) ==
LOC: SURGERY 05:09
PROVIDERS: ATTEND Ophthalmology
DX: E11.36 Type 2 diabetes mellitus with diabetic cataract (principal); H25.11 Age-related nuclear cataract, right eye; I10 Essential (primary) hypertension; G47.30 Sleep apnea, unspecified; E66.01 Morbid (severe) obesity due to excess calories; E03.9 Hypothyroidism, unspecified; Z68.42 Body mass index [BMI] 45.0-49.9, adult; Z90.49 Acquired absence of other specified parts of digestive tract; Z79.899 Other long term (current) drug therapy
CPT/HCPCS: 66984; 82962; 87426; 93005; C9803; J0171; J2250; J3010; J3490 ×2; J7120; V2632

== ENCOUNTER → 2021-04-29 | Outpatient (CLI) | payer MEDICARE, OTHER ==
[~2021-04-29] MED LIST changes: -BENZ-51 PO; +BENZ-70 PO; -OLAN10TA3 PO; +OLAN10TA74 PO; -RINGERS SOLUTION,LACTATED 500 ML IV ONE
== END | disposition home or self-care (01) ==
LOC: RADPV 08:23
PROVIDERS: ATTEND Legal Medicine
DX: I73.9 Peripheral vascular disease, unspecified (principal)
CPT/HCPCS: 93925

== ENCOUNTER 2022-09-14 09:58 | Emergency (ER) | payer MEDICARE, OTHER ==
[~2022-09-14] VITALS: Ht 182.9 cm; Wt 155.4 kg
[~2022-09-14 09:58] MED LIST changes: +METF-1211 PO; -METF-960 PO; +POTA-206 PO; -POTA20TA83 PO
[2022-09-14 10:08] VITALS: BP 111/65
[2022-09-14] MEDS ORDERED: INSU100V37 SQ (10:17)
[2022-09-14] MEDS ORDERED: INSNOV SQ (10:17)
== END 2022-09-14 11:54 | disposition left against medical advice (07) ==
LOC: EMS 10:00
DX: Z53.21 Procedure and treatment not carried out due to patient leaving prior to being seen by health care provider (principal)